=== PATIENT | female | born 1935 | race Caucasian/White ===

== ENCOUNTER 2019-02-20 15:38 | Outpatient (REF) | payer OTHER, SELFPAY ==
[2019-02-20 19:33] LABS: HCT 44.8 % (36.0-46.0); HGB 14.3 g/dL (12.0-15.5); Mean Corp. HGB Concentration 31.9 g/dL (32.0-36.0); Mean Corpuscular Hemoglobin 31.3 pg (27.0-33.0); Mean Platelet Volume 11.2 fL (8.0-11.0); Platelet Count 220 x1000/uL (130-400); RBC 4.57 m/cumm (4.00-5.20); RBC Distribution Width 13.3 % (11.7-14.6); White Blood Cell Count 10.53 k/cumm (4.4-10.8)
[2019-02-20 19:42] LABS: BUN 20 mg/dL (7-18); CREATININE 0.88 mg/dL (0.55-1.02); Calcium 9.6 mg/dL (8.5-10.1); Chloride 103 mmol/L (98-107); Glucose 106 mg/dL (70-100); Potassium 4.5 mmol/L (3.5-5.1); Sodium 141 mmol/L (136-145)
[2019-02-20 19:46] LABS: COMMENT (LAB VIEW ONLY) 87.63 mg/dL; Microalb ug/mg Crea 6.2 ug/mg Cr
== END 2019-02-20 15:58 ==
LOC: NCHCN 15:38
PROVIDERS: PCP Family Medicine; Visit Provider Family Medicine
DX: E11.9 Type 2 diabetes mellitus without complications (principal); I10 Essential (primary) hypertension
CPT/HCPCS: 80048; 85027; 82043; 82570

== ENCOUNTER 2019-04-09 01:40 | Outpatient (CLI) | payer OTHER, SELFPAY ==
--- NOTE | 2019-04-09 16:10 | DI.MAMMO_ITS ---
EXAM: MAMMO SCREENING CLINICAL HISTORY: SCREENING Z12.31. TECHNIQUE: Mammograms were interpreted according to the usual protocol including computer analysis w [employer] CAD system, tomosynthesis and C-view imaging. FINDINGS: The breast tissue is of moderate radiodensity. There is no dominant mass. There are no suspicious ca lcifications and there has been no significant interval change when compared with prior images. IMPRESSION: No evidence of malignancy, category 1, yearly screening mammography is recommended. BI-RADS category B. BI-RADS Cat 1 - Negative. Breast Density - Category B - Scattered areas of fibroglandular density.
--- NOTE | 2019-04-09 16:26 | DI.DEXA_ITS ---
EXAM: XR DEXA BONE DENSITY W/WO JELANI INDICATION: OSTEOPENIA M85.88. TECHNIQUE: 2D digital imaging was performed. FINDINGS: The scanogram is unremarkable. For the left hip, a T-score of -0.6 and a Z-score of +1.6 are consis tent with osteopenia and an increased fracture risk. For the lumbar spine, a T-score of 0.3 and a Z- score of 3.1 are within the normal range. For the left forearm, T-score of -2.8 and Z-score 0.5 indic ate osteopenia and an increased fracture risk. When compared with the previous study 10/23/2012, there has been an interval 1.2 percent increase in mineralization.
== END 2019-04-09 02:00 ==
PROVIDERS: PCP Family Medicine; Visit Provider Family Medicine
DX: Z12.31 Encounter for screening mammogram for malignant neoplasm of breast (principal); M85.88 Other specified disorders of bone density and structure, other site
CPT/HCPCS: 77063; 77067; 77080

== ENCOUNTER 2019-06-04 15:31 | Outpatient (REF) | payer OTHER, SELFPAY ==
[2019-06-04 16:19] LABS: Bilirubin Negative (Negative); Blood Negative (Negative); Clarity Sl Cloudy (Clear); Glucose 100 mg/dL (Negative); Ketones Negative (Negative); Leukocyte Esterase Negative (Negative); Nitrite Positive (Negative); Specific Gravity 1.025 (1.005-1.025); Urobilinogen 0.2 EU/dL (Up TO 0.2)
[2019-06-04 16:29] LABS: Bacteria Many HPF (Negative); C & S Indicated? Yes; Casts Negative LPF (Negative); Crystals Negative HPF (Negative); Epithelial Cells Few HPF (Negative); Mucus Negative (Negative); RBC 0-2 HPF (0-2)
== END 2019-06-04 15:51 ==
LOC: NCHCN 15:31
PROVIDERS: PCP Family Medicine; Visit Provider Family Medicine
DX: R30.0 Dysuria (principal)
CPT/HCPCS: 81003; 81015; 87086; 87186

== ENCOUNTER → 2019-07-18 12:53 | Outpatient (BNVA) | payer OTHER, SELFPAY | PROVIDERS: PCP Family Medicine; Referring Provider Family Medicine; Visit Provider Nurse Practitioner Gerontology | DX: N39.46 Mixed incontinence (principal) | CPT/HCPCS: 99204; 99215 ==

== ENCOUNTER 2019-07-22 08:48 | Outpatient (REF) | payer OTHER, SELFPAY ==
[2019-07-22 10:09] LABS: Bilirubin Negative (Negative); Blood Negative (Negative); Clarity Sl Cloudy (Clear); Glucose Negative (Negative); Ketones Negative (Negative); Leukocyte Esterase Trace (Negative); Nitrite Negative (Negative); Specific Gravity 1.015 (1.005-1.025); Urobilinogen 0.2 EU/dL (Up TO 0.2)
[2019-07-22 10:18] LABS: Bacteria Moderate HPF (Negative); C & S Indicated? No/Sq. Contamination; Casts Negative LPF (Negative); Crystals Negative HPF (Negative); Epithelial Cells Many HPF (Negative); Mucus Negative (Negative); RBC 0-2 HPF (0-2)
== END 2019-07-22 09:08 ==
LOC: LBN 08:48
PROVIDERS: PCP Family Medicine; Visit Provider Nurse Practitioner Gerontology
DX: N39.46 Mixed incontinence (principal)
CPT/HCPCS: 81003; 81015

== ENCOUNTER 2020-01-24 08:52 | Outpatient (REF) | payer OTHER, SELFPAY ==
[2020-01-24 16:24] LABS: HCT 47.4 % (36.0-46.0); HGB 14.9 g/dL (12.0-15.5); Mean Corp. HGB Concentration 31.4 g/dL (32.0-36.0); Mean Corpuscular Hemoglobin 30.9 pg (27.0-33.0); Mean Corpuscular Volume 98.3 fL (80-95); Mean Platelet Volume 11.4 fL (8.0-11.0); Platelet Count 235 x1000/uL (130-400); RBC 4.82 m/cumm (4.00-5.20); RBC Distribution Width 13.4 % (11.7-14.6); White Blood Cell Count 9.59 k/cumm (4.4-10.8)
[2020-01-24 16:37] LABS: ALT 22 U/L (14-59); AST 23 U/L (15-37); Albumin 3.8 g/dL (3.4-5.0); Alkaline Phosphatase 108 U/L (46-116); Anion Gap 5.6 mmol/L (3-11); BUN 17 mg/dL (7-18); Bilirubin, Total 0.7 mg/dL (0.2-1.0); CO2 31.4 mmol/L (21.0-32.0); CREATININE 0.82 mg/dL (0.55-1.02); Calcium 9.1 mg/dL (8.5-10.1); Calculated LDL 127 mg/dL (<100); Chloride 106 mmol/L (98-107); Cholesterol 206 mg/dL (<200); Glucose 151 mg/dL (74-106); HDL Cholesterol 44 mg/dL (40-60); Potassium 4.8 mmol/L (3.5-5.1); Sodium 143 mmol/L (136-145); Total Protein 6.9 g/dL (6.4-8.2); Triglyceride 176 mg/dL (<150)
[2020-01-24 17:22] LABS: Hemoglobin A1C 6.7 % (3.8-5.6)
== END 2020-01-24 09:12 ==
LOC: NCHCN 08:52
PROVIDERS: PCP Family Medicine; Visit Provider Family Medicine
DX: E11.9 Type 2 diabetes mellitus without complications (principal); I25.10 Atherosclerotic heart disease of native coronary artery without angina pectoris; E78.5 Hyperlipidemia, unspecified; I10 Essential (primary) hypertension
CPT/HCPCS: 80053; 80061; 85027; 83036

== ENCOUNTER 2020-01-31 14:14 | Outpatient (REF) | payer OTHER, SELFPAY ==
[2020-01-31 22:10] LABS: COMMENT (LAB VIEW ONLY) 77.57 mg/dL; Microalb ug/mg Crea 4.1 ug/mg Cr
== END 2020-01-31 14:34 ==
LOC: NCHCN 14:14
PROVIDERS: PCP Family Medicine; Visit Provider Family Medicine
DX: E11.9 Type 2 diabetes mellitus without complications (principal)
CPT/HCPCS: 82043; 82570

== ENCOUNTER 2020-02-03 01:20 | Outpatient (CLI) | payer OTHER, SELFPAY ==
--- NOTE | 2020-02-03 | DI.RAD_ITS ---
EXAM: XR LUMBAR SPINE COMPLETE CLINICAL HISTORY: CHRONIC LOW BACK PAIN, M54.5 TECHNIQUE: COMPARISON: CR XR DEXA BONE DENSITY W/WO JELANI from 04/09/2019 CR XR SACROILIAC JOINTS from 02/03/2020 FINDINGS: Five views of lumbosacral spine and 3 additional views of the SI joints were obtained. There is a tr ansitional lumbosacral vertebra. There is disc space narrowing throughout the lumbar region. Promin ent hypertrophic degenerative changes are noted involving the vertebral endplates and facet joints th roughout the lumbar region. There is no evidence of spondylolysis or spondylolisthesis. No compress ion fracture seen. No erosive or destructive lesion seen. Mild right convex lumbar scoliosis noted. Mild marginal spurring of the SI joints noted bilaterally. No evidence of sacroiliitis. IMPRESSION: Degenerative changes involving the lumbosacral spine as described above. No other significant findin gs.
== END 2020-02-03 01:40 ==
PROVIDERS: PCP Family Medicine; Visit Provider Family Medicine
DX: M51.37 Other intervertebral disc degeneration, lumbosacral region (principal); M41.9 Scoliosis, unspecified
CPT/HCPCS: 72110; 72202

== ENCOUNTER 2020-07-30 10:30 | Outpatient (REF) | payer OTHER, SELFPAY ==
[2020-07-30 13:55] LABS: HCT 46.9 % (36.0-46.0); MCH 30.9 pg (27.0-33.0); MCV 96.5 fL (80-95); MPV 11.7 fL (8.0-11.0); Platelet Count 192 10^3/uL (130-400); RBC 4.86 10^6/uL (3.93-5.22); RDW 12.7 % (11.7-14.6); RDW-SD 45.4 fL; WBC 11.28 10^3/uL (4.4-10.8)
[2020-07-30 14:37] LABS: TSH (W/Ref FT4) 3.19 uIU/mL (0.36-3.74); Vitamin B12 703 pg/mL (193-986)
[2020-07-30 14:43] LABS: Folate > 20.0 ng/mL (8.6-20.0)
== END 2020-07-30 10:50 ==
LOC: NCHCN 10:30
PROVIDERS: PCP Family Medicine; Visit Provider Family Medicine
DX: R53.83 Other fatigue (principal); R53.1 Weakness; R20.2 Paresthesia of skin
CPT/HCPCS: 85027; 82607; 82746; 84443

== ENCOUNTER 2020-12-10 01:43 | Outpatient (CLI) | payer OTHER, SELFPAY ==
--- NOTE | 2020-12-10 14:03 | DI.US_ITS ---
APPROVED REPORT EXAM: Comprehensive 2D, Doppler, and color-flow Echocardiogram Patient Location: Out-Patient Cash Analyst: Eri Foster RDCS (AE) Indications: Mitral Regurgitation Other Information Study Quality: Fair Conclusion Left Ventricle : The left ventricle is normal size. The left ventricular systolic function is normal. The left ventricular ejection fraction is within the normal range. Mild concentric left ventricular hypertrophy. There is normal LV segmental wall motion. LVEF is 57%. Right Ventricle : The right ventricle is normal size. The right ventricular systolic function is norm al. Atria : The left atrium size is normal. The right atrium size is normal. Doppler suggests left to rig ht interatrial shunt PFO. Mitral Valve : Moderate mitral annular calcification. Mild mitral regurgitation. No evidence of levon l valve stenosis. Great Vessels : The aortic root is normal in size. The ascending aorta is normal in size. Aortic arch is normal in caliber. IVC is normal in size and collapses >50% with inspiration. Compared to study from 11/14/2017, there is no significant change. Wall motion Left Ventricle The left ventricle is normal size. The left ventricular systolic function is normal. The left ventric ular ejection fraction is within the normal range. Mild concentric left ventricular hypertrophy. Ther e is normal LV segmental wall motion. There is no ventricular septal defect visualized. LVEF is 57%. Right Ventricle The right ventricle is normal size. The right ventricular systolic function is normal. Atria The left atrium size is normal. The right atrium size is normal. Doppler suggests left to right inter atrial shunt PFO. Aortic Valve The aortic valve is normal in structure. Aortic valve is trileaflet. There is no aortic valvular sten osis. No aortic regurgitation is present. Mitral Valve Moderate mitral annular calcification. No evidence of mitral valve stenosis. Mild mitral regurgitatio n. Tricuspid Valve The tricuspid valve is normal in structure. There is no tricuspid valve stenosis. Trace tricuspid reg urgitation. Unable to assess PA pressure. Pulmonic Valve The pulmonary valve is normal in structure. There is no pulmonic valvular stenosis. Trace pulmonic re gurgitation. Great Vessels The aortic root is normal in size. The ascending aorta is normal in size. Aortic arch is normal in ca liber. IVC is normal in size and collapses >50% with inspiration. Pericardium There is no pericardial effusion. 2D Dimensions IVSD d PLAX 1.08 cm F: 0.6-1.0 LV Vol A2C d MOD 87.4 mL LVPW d PLAX 1.08 cm F: 0.6 - 1.0 LV Vol A4C d MOD 76.5 mL LVID d PLAX 4.60 cm F: 3.8 - 5.2 LA vol/ BSA A2C s A-L 23.5 mL/m2 LVDs 3.10 cm F: 2.2 - 3.5 LA vol/ BSA A4C s A-L 28.2 mL/m2 Ao Root d 2.92 cm F: 2.7 - 3.3 LA Vol/ BSA Biplane s A-L 26.1 mL/m2 RA Area A4C 15.07 cm2 LA Area A4C s MOD 18.89 cm2 RA Vol/ BSA A4C s A-L 17.8 mL/m2 LA Area A2C s MOD 17.01 cm2 Ao Asc Diam d 3.16 cm F: 2.3 - 3.1 LV EF A4C MOD 56.1 % LV EF Teichholz 59.9 % LV EF A2C MOD 58.1 % LVEF (Aquino's) 55.79 % F: 54 - 74 LV EF Biplane MOD 55.8 % LV Volume 62.51 mL F: 46 - 106 SV 46.23 mL LV Volume Index 31.89 mL/m2 F: 29 - 61 SV Index 23.52 mL/m2 LV Vol Biplane MOD 82.9 mL FS 31.75 % M-Mode TAPSE 1.91 cm (M/F) >1.7 LV Diastology MV E' medial 0.058 (>0.07 m/s) E/A Ratio 1.3 LV E/e MED 12.30 (<14) MV E Vmax 0.71 (0.4-1.3 m/s) MV E' lateral 0.066 (>0.1 m/s) MV A Vmax 0.55 (0.4-1.3 m/s) LV E/e LAT 10.80 (<14) MV E/A Ratio 1.19 MV E/E' medial 12.34 MV E/E' lateral 10.81 Aortic Valve LVOT Area 3.83 cm2 AoV Area Vmax 3.02 cm2 LVOT Vmax 0.93 m/s AoV Area/ BSA (Vmax) 1.53 cm2/m2 LVOT Mean Fernando. 0.72 m/s MARSHAL Mean Fernando. 3.32 cm2 LVOT Peak Grad 3.5 mmHg MARSHAL Mean Fernando. Index 1.69 cm2/m2 LVOT Mean Grad 2.2 mmHg LVOT VTI 0.240 m LVOT Diam s 2.20 cm AoV Vmax 1.18 m/s Velocity Ratio 0.78 AoV Mean Fernando. 0.83 m/s AoV Peak Grad 5.6 mmHg LVOT SV 92.07 mL AoV Mean Grad 3.1 mmHg AoV VTI 0.259 m AoV Area VTI 3.56 cm2 AoV Area/ BSA (VTI) 1.81 cm/m2 Mitral Valve MV DT 218 (160-240 msec) MV PHT 63 msec MV Area PHT 3.49 cm2 MV VTI 0.318 m MV VTI Annulus 0.315 m MV Area VTI 2.86 (4.0-6.0 cm2) Pulmonary Valve PV Vmax 0.81 (0.5-1.5 m/s) RVOT Peak Gr. 1.10 mmHg PV Peak Grad 2.7 mmHg RVOT Mean Gr. 0.65 mmHg PV Mean Grad 1.5 mmHg RVOT VTI 0.149 m PV VTI 0.183 m RVOT Vmax 0.52 m/s
== END 2020-12-10 02:03 ==
PROVIDERS: PCP Family Medicine; Visit Provider Family Medicine
DX: I34.0 Nonrheumatic mitral (valve) insufficiency (principal)
CPT/HCPCS: 93306

== ENCOUNTER 2021-04-08 11:55 | Outpatient (REF) | payer OTHER, SELFPAY ==
[2021-04-08 15:16] LABS: COMMENT (LAB VIEW ONLY) 96.43 mg/dL; Microalb ug/mg Crea 5.6 ug/mg Cr
== END 2021-04-08 11:56 | disposition home or self-care (01) ==
LOC: NCHCN 11:55
PROVIDERS: PCP Family Medicine; Visit Provider Family Medicine
DX: E11.9 Type 2 diabetes mellitus without complications (principal)
CPT/HCPCS: 82043; 82570

== ENCOUNTER 2021-05-17 02:27 | Outpatient (CLI) | payer MEDICARE, SELFPAY ==
--- NOTE | 2021-05-17 11:30 | DI.MAMMO_ITS ---
Exam(s) MAMMO SCREENING EXAM: MAMMO SCREENING CLINICAL HISTORY: SCREENING FOR BREAST CANCER Z12.31. TECHNIQUE: Bilateral full field digital CC and MLO mammographic images were obtained with 3D tomosyn thesis and utilizing computer aided detection (CAD). COMPARISON: Prior mammograms dating back to 2010, the most recent being April 2019. FINDINGS: There are no CAD designations. No new significant radiograph findings in the right breast. In the left breast on 3D cc imaging there is a noncalcified well-defined lobulated nodule located 3 c m in from the nipple, this measuring 8 by 7 millimeters but unchanged from at least 2013 and therefor e benign. There are no malignant-appearing microcalcification groups in this region or elsewhere in either breast There is no significant architectural distortion nor skin thickening-retraction. IMPRESSION: Stable benign findings. No radiographic evidence of malignancy. BI-RADS Category 2 - Benign Findings Breast Density - Category B - Scattered areas of fibroglandular density Breast density Category C or D implies that the patient has dense breast tissue. Dense breast tissue can make it harder to find cancer on a mammogram. Dense breast tissue is also associated with an incr eased risk of breast cancer. This information about the result of the mammogram report was provided to the patient to raise their awareness. Use this report when you speak with the patient about their risks for breast cancer, which includes their family history. At that time, you may recommend additional screening tests (Ultrasoun d or MRI) as these tests may add significant information. A negative radiographic report should not delay biopsy if a dominant or clinically suspicious mass is present. Up to ten percent of cancers are not identified on mammography. A negative report may reinforce clinical impression. Adenosis and dense breasts may obscure an underlying neoplasm. False positive reports average 6 to 10%. Patient will receive a letter notifying them of these results.
== END 2021-05-17 02:47 ==
PROVIDERS: PCP Family Medicine; Visit Provider Family Medicine
DX: Z12.31 Encounter for screening mammogram for malignant neoplasm of breast (principal); N60.82 Other benign mammary dysplasias of left breast
CPT/HCPCS: 77063; 77067

== ENCOUNTER 2021-07-23 15:18 | Outpatient (REF) | payer MEDICARE, SELFPAY ==
[2021-07-23 15:41] LABS: HCT 45.4 % (36.0-46.0); HGB 14.3 g/dL (11.2-15.7); MCH 30.8 pg (27.0-33.0); MCHC 31.5 % (32.0-36.0); MCV 97.8 fL (80-95); MPV 11.3 fL (8.0-11.0); Platelet Count 228 10^3/uL (130-400); RBC 4.64 10^6/uL (3.93-5.22); RDW 12.8 % (11.7-14.6); RDW-SD 45.9 fL
[2021-07-23 16:04] LABS: Hemoglobin A1C 7.2 % (<5.7)
[2021-07-23 16:10] LABS: Anion Gap 6.5 mmol/L (3-11); BUN 19 mg/dL (7-18); CO2 30.5 mmol/L (21.0-32.0); Calcium 9.1 mg/dL (8.5-10.1); Calculated LDL 124 mg/dL (<100); Chloride 102 mmol/L (98-107); Cholesterol 202 mg/dL (<200); Estimated GFR 52.69 (mL/min/1.73m2); Glucose 166 mg/dL (74-106); HDL Cholesterol 48 mg/dL (40-60); Potassium 5.1 mmol/L (3.5-5.1); Sodium 139 mmol/L (136-145); Triglyceride 150 mg/dL (<150)
== END 2021-07-23 15:19 | disposition home or self-care (01) ==
LOC: NCHCN 15:18
PROVIDERS: PCP Family Medicine; Visit Provider Family Medicine
DX: E11.9 Type 2 diabetes mellitus without complications (principal); I10 Essential (primary) hypertension; I25.10 Atherosclerotic heart disease of native coronary artery without angina pectoris
CPT/HCPCS: 80048; 80061; 85027; 83036

== ENCOUNTER 2022-04-22 14:32 | Outpatient (REF) | payer MEDICARE, SELFPAY ==
[2022-04-22 15:54] LABS: COMMENT (LAB VIEW ONLY) 45.24 mg/dL; Microalb ug/mg Crea 18.1 ug/mg Cr
== END 2022-04-22 14:33 | disposition home or self-care (01) ==
LOC: NCHCN 14:32
PROVIDERS: PCP Family Medicine; Visit Provider Family Medicine
DX: B37.31 Acute candidiasis of vulva and vagina (principal)
CPT/HCPCS: 82043; 82570; 87480; 87510; 87660

== ENCOUNTER 2022-07-29 00:32 | Outpatient (CLI) | payer MEDICARE, SELFPAY ==
--- NOTE | 2022-07-29 09:54 | DI.RAD_ITS ---
Exam(s) XR LUMBAR SPINE COMPLETE EXAM: XR LUMBAR SPINE COMPLETE CLINICAL HISTORY: LOW BACK PAIN X 3 MONTHS, M54.59. TECHNIQUE: 2D digital imaging was performed of the lumbar spine. Seven images were obtained. AP, l ateral, right oblique, left oblique and L5-S1 spot views were obtained. COMPARISON: CR XR LUMBAR SPINE COMPLETE from 02/03/2020 FINDINGS: BONES: No fracture or destructive lesion. Endplate osteophytes are present throughout the lumbar spin e. Multilevel facet arthropathy is present. DISKS: Disc space narrowing is seen throughout the lumbar spine with sparing of the L2-L3 disc level. ALIGNMENT: There is a mild right convex scoliosis. No spondylolysis or spondylolisthesis. SOFT TISSUE: Atherosclerosis is present. 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 DATA REPOSITORY: RADIATION DOSE DELIVERED:
== END 2022-07-29 00:52 ==
LOC: DI 00:32
PROVIDERS: PCP Family Medicine; Visit Provider Family Medicine
DX: M54.59 Other low back pain (principal); M51.37 Other intervertebral disc degeneration, lumbosacral region; M47.817 Spondylosis without myelopathy or radiculopathy, lumbosacral region
CPT/HCPCS: 72110

== ENCOUNTER 2022-08-12 14:56 | Outpatient (REF) | payer MEDICARE, SELFPAY ==
[2022-08-12 16:28] LABS: Anion Gap 8.9 mmol/L (3-11); BUN 19 mg/dL (7-18); CO2 29.1 mmol/L (21.0-32.0); CREATININE 0.9 mg/dL (0.55-1.02); Calcium 9.4 mg/dL (8.5-10.1); Chloride 100 mmol/L (98-107); Estimated GFR 62.26 (mL/min/1.73m2); Glucose 198 mg/dL (74-106); Potassium 5.3 mmol/L (3.5-5.1); Sodium 138 mmol/L (136-145)
[2022-08-12 16:34] LABS: Hemoglobin A1C 7.8 % (<5.7)
== END 2022-08-12 14:57 | disposition home or self-care (01) ==
LOC: NCHCN 14:56
PROVIDERS: PCP Family Medicine; Visit Provider Family Medicine
DX: E11.9 Type 2 diabetes mellitus without complications (principal); I10 Essential (primary) hypertension; Z00.00 Encounter for general adult medical examination without abnormal findings
CPT/HCPCS: 80048; 83036

== ENCOUNTER 2022-10-21 15:16 | Outpatient (REF) | payer MEDICARE, SELFPAY ==
[2022-10-21 18:12] LABS: Anion Gap 5.3 mmol/L (3-11); BUN 21 mg/dL (7-18); CO2 31.7 mmol/L (21.0-32.0); CREATININE 0.9 mg/dL (0.55-1.02); Calcium 9.5 mg/dL (8.5-10.1); Chloride 102 mmol/L (98-107); Estimated GFR 62.26 (mL/min/1.73m2); Glucose 224 mg/dL (74-106); Potassium 5.1 mmol/L (3.5-5.1); Sodium 139 mmol/L (136-145)
== END 2022-10-21 15:17 | disposition home or self-care (01) ==
LOC: NCHCN 15:16
PROVIDERS: PCP Family Medicine; Visit Provider Psychiatry & Neurology Child & Adolescent Psychiatry
DX: E87.5 Hyperkalemia (principal); E11.9 Type 2 diabetes mellitus without complications; I10 Essential (primary) hypertension
CPT/HCPCS: 80048

== ENCOUNTER → 2022-12-29 08:06 | Outpatient (BNVA) | payer MEDICARE, SELFPAY | PROVIDERS: PCP Family Medicine; Referring Provider Family Medicine; Visit Provider Nurse Practitioner Gerontology | DX: N39.41 Urge incontinence (principal) | CPT/HCPCS: 51798; 99203 ==

== ENCOUNTER 2023-01-20 15:19 | Outpatient (REF) | payer MEDICARE, SELFPAY ==
[2023-01-20 15:16] LABS: HCT 41.9 % (36.0-46.0); HGB 13.6 g/dL (11.2-15.7); MCH 31.4 pg (27.0-33.0); MCHC 32.5 % (32.0-36.0); MCV 97 fL (80-95); MPV 10.9 fL (8.0-11.0); Platelet Count 200 10^3/uL (130-400); RBC 4.33 10^6/uL (3.93-5.22); RDW 12.4 % (11.7-14.6); RDW-SD 44.4 fL; WBC 8.99 10^3/uL (4.4-10.8)
[2023-01-20 15:33] LABS: Anion Gap 7.8 mmol/L (3-11); BUN 30 mg/dL (7-18); CO2 31.2 mmol/L (21.0-32.0); CREATININE 0.8 mg/dL (0.55-1.02); Calcium 9.1 mg/dL (8.5-10.1); Chloride 103 mmol/L (98-107); Estimated GFR 71.71 (mL/min/1.73m2); Glucose 167 mg/dL (74-106); Sodium 142 mmol/L (136-145)
== END 2023-01-20 15:20 | disposition home or self-care (01) ==
LOC: NCHCN 15:19
PROVIDERS: PCP Family Medicine; Visit Provider Family Medicine
DX: I10 Essential (primary) hypertension (principal); E87.5 Hyperkalemia; R23.1 Pallor
CPT/HCPCS: 80048; 85027

== ENCOUNTER → 2023-02-01 13:45 | Outpatient (BNVA) | payer MEDICARE, SELFPAY | PROVIDERS: PCP Family Medicine; Referring Provider Family Medicine; Visit Provider Nurse Practitioner Gerontology | DX: R32 Unspecified urinary incontinence (principal) | CPT/HCPCS: 51798; 99213 ==

== ENCOUNTER → 2023-04-12 11:22 | Outpatient (BNVA) | payer MEDICARE, SELFPAY | PROVIDERS: PCP Family Medicine; Visit Provider Nurse Practitioner Gerontology | DX: N39.46 Mixed incontinence (principal); K59.00 Constipation, unspecified; R60.0 Localized edema; R39.89 Other symptoms and signs involving the genitourinary system | CPT/HCPCS: 99213 ==

== ENCOUNTER 2023-04-26 20:30 | Inpatient (IN) | payer MEDICARE, SELFPAY ==
[2023-04-26] VITALS (41 sets, daily range): BP systolic 115–172; BP diastolic 73–143; PULSE 76–141; RESP 16–33; TEMP 36.2–36.8; O2SAT 87–100
--- NOTE | 2023-04-26 20:15 | RT.EKG_ITS ---
APPROVED REPORT Exam: Resting ECG Reason for Exam: short of breath, rapid a-fib Patient Location: E HR:109 bpm ECG Measurements Heart Rate 109 AXIS VA [id number] P [id number] QRSd 98 QRS -4 QT 312 T 148 QTc 421 Conclusion Atrial fibrillation...V-rate 88-134, irreg A-activity Repol abnrm suggests ischemia, anterolateral...ST dep, T neg, I aVL V2-V6 No ST segment or T wave abnormalities to suggest occlusive MD
--- NOTE | 2023-04-26 20:30 | DI.CT_ITS ---
Exam(s) CT CHEST PE CTA EXAM: CT CHEST PE CTA CLINICAL HISTORY: short of breath hypoxia. TECHNIQUE: Imaging Protocol: Axial CT angiography was performed with multi-slice acquisition and mu lti-planar reconstructions as well as axial, coronal and sagittal MIP reconstructions. CONTRAST MATERIAL: Intravenous: Omnipaque 350 Contrast volume:100 ml COMPARISON: CR CHEST 2 VIEWS PA,LAT from 12/19/2013 FINDINGS: Pulmonary Arteries: No evidence of filling defect to suggest pulmonary emboli. Pulmonary artery pro minence. Tracheobronchial tree: Patent where visualized. Mediastinum and Eva: No dominant adenopathy or fluid collection. Pulmonary parenchyma: Increased interlobular septal thickening greater at the lung bases, consistent with pulmonary edema. No consolidation or dominant measurable mass. Pleura: Small bilateral pleural effusions. No pneumothorax. Heart: The heart is dilated. coronary artery calcifications are seen. No pericardial effusion. Aorta: Thoracic aorta non-dilated. No aneurysm. No dissection. Upper abdomen: Unremarkable. Bones: Unremarkable for age. Tubes, Catheters, and Lines: None IMPRESSION: No evidence of pulmonary embolism. Small bilateral pleural effusions, cardiomegaly and mild to moderate CHF. RADIATION DOSE DELIVERED: Total DLP DATA REPOSITORY: All CT scans at this facility are submitted to the National Radiology Data Registry (NRDR) Dose Index Registry (DIR) with the [employer] ([employer]). RADIATION OPTIMIZATION: All CT scans at this facility use at least one of these dose optimization te chniques: automated exposure control; mA and/or kV adjustment per patient size (includes targeted exa ms where dose is matched to clinical indication); or iterative reconstruction.
--- NOTE | 2023-04-26 20:30 | RT.EKG_ITS ---
APPROVED REPORT Exam: Resting ECG Reason for Exam: a-fib, wants r sided ekg Patient Location: E HR:121 bpm ECG Measurements Heart Rate 121 AXIS CA [id number] P [id number] QRSd 99 QRS -10 QT 332 T 150 QTc 471 Conclusion Atrial fibrillation...V-rate 74-156, irreg A-activity Anterolateral infarct, age indeterminate...Q >35mS, flat/neg T, V3-V6,I,aVL No ST segment or T wave abnormalities to suggest occlusive [place]
[2023-04-26 20:54] LABS: Abs Immature Grans 0.08 10^3/uL (0.0-0.06); Absolute Basophil Count 0.06 10^3/uL (0.0-0.2); Absolute Eosinophil Count 0.02 10^3/uL (0.0-0.7); Absolute Monocyte Count 1.21 10^3/uL (0.1-0.8); Absolute Neutrophil Count 15.85 10^3/uL (1.2-6.7); Basophils % 0.3; Eosinophils % 0.1; HCT 45.6 % (36.0-46.0); HGB 14.6 g/dL (11.2-15.7); Immature Grans % 0.4; Lymphocytes % 7.5; MCH 30.5 pg (27.0-33.0); MCV 95 fL (80-95); MPV 10.9 fL (8.0-11.0); Monocytes % 6.5; Neutrophils % 85.2; Platelet Count 235 10^3/uL (130-400); RBC 4.79 10^6/uL (3.93-5.22); RDW 12.6 % (11.7-14.6); RDW-SD 44.5 fL
[2023-04-26 21:08] LABS: INR 1.1 (0.9-1.1); PTT Activated 24.2 sec (23.6-32.8)
--- NOTE | 2023-04-26 21:18 | ED.GENADUL_ITS ---
Discharge Plan Disposition Patient Disposition: Admit to [facility] Discharge Details Chief Complaint: SOB Clinical Impression: Respiratory failure Primary Care Provider: Ruth Ho ED Provider: Preeti Jeffery Home Meds and New Rx's Prescriptions: No Action naproxen sodium [Aleve] 220 mg tablet 220 mg PO BID PRN desonide 0.05 % Cream 1 applic TOPICAL BID amlodipine 2.5 mg Tablet 2.5 mg PO DAILY (DME) OneTouch Ultra Blue Test Strip Strip MISCELLANEOUS (DME) lancets [OneTouch UltraSoft Lancets] Misc MISCELLANEOUS (DME) blood-glucose meter [eGisticsTouch UltraMini] Kit MISCELLANEOUS clobetasol 0.05 % Solution 1 applic TOPICAL BID (DME) pen needle, diabetic [TRUEplus Pen Needle] 31 gauge x 3/16 Needle MISCELLANEOUS latanoprost [Xalatan] 2.5 ML drops 1 drp Ophthalmic DAILY atorvastatin 40 MG tablet 40 mg PO DAILY Patient Comments: pt states dose is 20mg -MG 04/26/23 aspirin [Aspir-81] 81 MG tablet,delayed release (DR/EC) 81 mg PO DAILY nitroglycerin [Nitrostat] 0.4 MG tablet, sublingual 0.4 mg Sublingual ONCE brimonidine 15 ML drops 1 drp Ophthalmic BID metformin 500 MG tablet extended release 24hr 1,000 mg PO DAILY Levemir FlexTouch U100 Insulin 100 UNIT/1 ML insulin pen 60 u Sub-Q DAILY dorzolamide-timolol (PF) [Cosopt (PF)] 1 EACH dropperette 1 drp Ophthalmic BID multivitamin Tablet 1 tab PO DAILY mometasone 0.1 % solution 1 applic topical DAILY Nizoral A-D 1 % shampoo 1 applic topical Q3D clotrimazole 1 % cream 1 applic topical DAILY Rocklatan 0.02-0.005 % drops 1 drp ophthalmic (eye) DAILY lisinopril 40 mg tablet 20 mg PO DAILY Medical Decision Making 88yo F with hx HTN, DM, CAD presenting via EMS for shortness of breath. History from patient, EMS, and grandson at bedside. Has had 7 days of general malaise, mild cough, and increasing shortness of breath, worse today. On EMS arrival had O2 sat in the low 90's (improved to 97% on 4LNC) found to be in afib with RVR rate in the 160's. She was given 20mg of IV diltazem with improvement in HR to 90's. No chest pain at any point. Vital signs reassuring on arrival, mildly hypertensive, HR 90's-110's. EKG afib, some ST depressions anterolateral leads, on sequela of occlusive [place]. Labs reviewed as below, CBC with leukocytosis, CMP with no actionable abnormalities, coags normal, troponin markedly elevated at 2790 (suspect rate-related), BNP also elevated at 8890. Patient denies any history of heart failure or prior MIs. [facility] record review shows does have cardiac stents in place. On reassessment patient again with RVR; given additional 10mg of IV diltazem followed by dilt gtt, HR improved to 90's. COVID + CTA for PE independently reviewed, no saddle embolus on my view, agree with radiology read below. Will diuresis with IV lasix and attempt to wean O2, trend troponin. Discussed with cardiology [facility] [place] Justice, would hold off on heparin for now pending repeat troponin. He would like a call with an update after the delta troponin, might consider heparin if significantly uptrending. Discussed with hospitalist converter operator Dr. Quiroga; patient accepted to medicine service and awaiting transfer to the floor. Imaging Data Radiologic Study: Imaging: X-Ray Radiologist's impression: IMPRESSION: 1. No evidence of pulmonary embolus. 2. Mild pulmonary vascular congestion and mild findings of interstitial pulmonary edema as well as small pleural effusions. Lab Data Lab results reviewed: Yes I reviewed the patient's lab results. Labs: Laboratory Tests Range/Units 04/26/23 04/26/23 20:36 23:10 WBC (4.4-10.8) 10^3/uL 18.60 H RBC (3.93-5.22) 10^6/uL 4.79 Hgb (11.2-15.7) g/dL 14.6 Hct (36.0-46.0) % 45.6 MCV (80-95) fL 95 MCH (27.0-33.0) pg 30.5 MCHC (32.0-36.0) % 32.0 RDW (11.7-14.6) % 12.6 Plt Count (130-400) 10^3/uL 235 MPV (8.0-11.0) fL 10.9 Immature Gran % 0.4 Neutrophils % 85.2 Lymphocytes % 7.5 Monocytes % 6.5 Eosinophils % 0.1 Basophils % 0.3 Nucleated RBC % (0.0-0.3) % 0.0 Absolute Neutrophils (1.2-6.7) 10^3/uL 15.85 H Absolute Lymphocytes (1.2-3.4) 10^3/uL 1.40 Absolute Monocytes (0.1-0.8) 10^3/uL 1.21 H Absolute Eosinophils (0.0-0.7) 10^3/uL 0.02 Absolute Basophils (0.0-0.2) 10^3/uL 0.06 PT (9.1-11.1) sec 11.0 INR (0.9-1.1) 1.1 APTT (23.6-32.8) sec 24.2 Sodium (136-145) mmol/L 134 L Potassium (3.5-5.1) mmol/L 4.2 Chloride (98-107) mmol/L 99 Carbon Dioxide (21.0-32.0) mmol/L 24.0 Anion Gap (3-11) mmol/L 11.0 BUN (7-18) mg/dL 20 H Creatinine (0.55-1.02) mg/dL 0.9 Est GFR (CKD-EPI 2020) (mL/min/1.73m2) 61.87 Glucose (74-106) mg/dL 280 H Calcium (8.5-10.1) mg/dL 9.3 Magnesium (1.8-2.4) mg/dL 1.7 L Total Bilirubin (0.2-1.0) mg/dL 1.1 H AST (15-37) U/L 36 ALT (14-59) U/L 30 Alkaline Phosphatase (46-116) U/L 106 Troponin I (<or=60) ng/L 2790 H* NT-Pro-B Natriuret Pep (<300) pg/mL 8890 H Total Protein (6.4-8.2) g/dL 7.1 Albumin (3.4-5.0) g/dL 3.5 Urine Color (Yellow) Yellow Urine Clarity (Clear) Sl Cloudy Urine pH (5-8) 6.0 Ur Specific [place] (1.005-1.025) 1.020 Urine Protein (Negative) mg/dL Negative Urine Ketones (Negative) mg/dL 15 H Urine Blood (Negative) Trace-intact H Urine Nitrite (Negative) Negative Urine Bilirubin (Negative) Negative Urine Urobilinogen (Up to 0.2) mg/dL 0.2 Ur Leukocyte Esterase (Negative) Trace H Urine RBC (0-2) HPF 0-2 Urine WBC (0-5) HPF 10-20 H Ur Epithelial Cells (Negative) HPF Many Urine Crystals (Negative) HPF Negative Urine Bacteria (Negative) HPF Many Urine Mucus (Negative) Negative Ur Culture Indicated? No/Sq. Contamination Urine Glucose (Negative) mg/dL 500 H COVID-19 Source Nasopharynx SARS-CoV-2 (PCR) (Negative) Positive A Influenza Type A (PCR) (Negative) Negative Influenza Type B (PCR) (Negative) Negative RSV (PCR) (Negative) Negative HPI General Mode of arrival: EMS . Date/Time Provider Initiated Documentation: 04/26/23 20:42 . Limitations to Documentation: no limitations . Information obtained by: patient, family and EMS . HPI Narrative: 88yo F with hx HTN, DM, CAD presenting via EMS for shortness of breath. History from patient, EMS, and grandson at bedside. Has had 7 days of general malaise, mild cough, and increasing shortness of breath. Today began to feel worse and felt hot; on EMS arrival had sat in the low 90's (improved to 97% on 4LNC) found to be in afib with RVR rate in the 160's. She was given 20mg of IV diltazem with improvement in HR to 90's. Patient reports symptoms have improved and feels okay now. No chest pain at any point. No new LE edema. She is otherwise in her usual state of health with no fevers, chills, rash, nausea, vomiting, diarrhea, other concerns. Related Data Home Medications Medication Instructions Recorded Confirmed aspirin 81 mg tablet,delayed 81 mg PO DAILY 03/15/17 04/26/23 release (Aspir-) atorvastatin 40 mg tablet 40 mg PO DAILY 03/15/17 04/26/23 brimonidine 0.15 % eye drops 1 drp ophthalmic (eye) BID 03/15/17 04/26/23 dorzolamide-timolol (PF) 2 %-0.5 % 1 drp ophthalmic (eye) BID 03/15/17 04/26/23 eye drops in a dropperette (Cosopt (PF)) insulin detemir U-100 100 unit/mL 60 u subcut DAILY 03/15/17 04/26/23 (3 mL) subcutaneous pen (Levemir FlexTouch U-100 Insulin) latanoprost 0.005 % eye drops 1 drp ophthalmic (eye) DAILY 03/15/17 02/24/20 (Xalatan) metformin 500 mg tablet,extended 1,000 mg PO DAILY 03/15/17 04/26/23 release 24hr nitroglycerin 0.4 mg sublingual 0.4 mg sublingual ONCE 03/15/17 04/26/23 tablet (Nitrostat) amlodipine 2.5 mg tablet 2.5 mg PO DAILY 02/13/20 04/26/23 blood sugar diagnostic (OneTouch 02/13/20 04/26/23 Ultra Blue Test Strip) blood-glucose meter (eGisticsTouch 02/13/20 04/26/23 UltraMini kit) clobetasol 0.05 % scalp solution 1 applic topical BID 02/13/20 02/13/20 desonide 0.05 % topical cream 1 applic topical BID 02/13/20 04/26/23 lancets (eGisticsTouch UltraSoft 02/13/20 04/26/23 Lancets) pen needle, diabetic 31 gauge x 02/13/20 04/26/23 3/16 (TRUEplus Pen Needle) clotrimazole 1 % topical cream 1 applic topical DAILY 08/22/22 04/26/23 ketoconazole 1 % shampoo (Nizoral 1 applic topical Q3D 08/22/22 04/26/23 A-D) lisinopril 40 mg tablet 20 mg PO DAILY 08/22/22 04/26/23 mometasone 0.1 % topical solution 1 applic topical DAILY 08/22/22 04/26/23 multivitamin 1 tab PO DAILY 08/22/22 04/26/23 netarsudil 0.02 %-latanoprost 1 drp ophthalmic (eye) DAILY 08/22/22 0.005 % eye drops (Rocklatan) naproxen sodium 220 mg tablet 220 mg PO BID PRN 04/12/23 04/12/23 (Aleve) Allergies Allergy/AdvReac Type Severity Reaction Status Date / Time No Known Allergies Allergy Unverified 04/26/23 20:38 General Stated Complaint: SOB MARIA ANTONIA: 3 Review of Systems Narrative: see HPI PFSH All Active Problems (Updated 04/27/23 @ 00:19 by Preeti Jeffery MD) Respiratory failure (Acute) Acute COVID-19 (Acute) NSTEMI (non-ST elevated myocardial infarction) (Acute) CHF (congestive heart failure) (Chronic) Atrial fibrillation with rapid ventricular response (Acute) Colonic polyp (Acute) Hip pain, left (Acute) Risk for falls (Acute) Weakness (Acute) Tiredness (Acute) Paresthesia (Acute) Constipation (Acute) Actinic keratosis (Acute) Low back pain (Acute) Sciatica (Acute) Urinary incontinence (Acute) Medical History (Updated 04/27/23 @ 00:19 by Preeti Jeffery MD) Screening mammogram, encounter for Preventative health care Urinary incontinence, mixed Chronic low back pain Hyperplastic colonic polyp Basal cell carcinoma Glaucoma Psoriasis Obesity Pain of left hip joint Overactive bladder Osteopenia Depression Memory impairment Mitral regurgitation HTN (hypertension) HLD (hyperlipidemia) CAD (coronary artery disease) Diabetes mellitus Dysuria Social History Smoking/Tobacco Use Status: Never Smoking risk assessment performed?: Yes Alcohol Intake: never Drug use: Never Substance use type: does not use Household members: children Housing: house Number of Children: 3 current occupation: Retired What type of physical activity do you participate in: independent ambulation Do you feel safe at home: Yes Do you feel safe in your relationship?: Yes Exam Narrative Exam Narrative: General: Alert, well appearing, well nourished, in no acute distress. Head: Normocephalic, atraumatic Neck: Trachea midline, Neck supple. ENT: MMM. Cardiac: RRR, no murmurs appreciated Resp: No respiratory distress. CTAB. Abd: Soft, non-distended, nontender : No suprapubic tenderness. Extremities: No deformities. 1+ pitting edema bilateral LE. Neurologic: GCS 15. Moves all extremities freely against gravity Course Vital Signs Vital signs: Vital Signs Temperature 36.2 C L 04/26/23 20:31 Pulse 117 H 04/26/23 20:31 Respiratory Rate 24 04/26/23 20:31 Blood Pressure 158/128 H 04/26/23 20:31 Pulse Oximetry 97 04/26/23 20:31 Temperature 36.8 C 04/26/23 20:56 Temperature Source Temporal Artery Scan 04/26/23 20:56 Pulse 133 H 04/26/23 20:56 Respiratory Rate 25 H 04/26/23 20:56 Respiratory Effort Short of Breath 04/26/23 20:56 Respiratory Depth Normal 04/26/23 20:56 Respiratory Pattern Normal 04/26/23 20:56 Blood Pressure 162/89 H 04/26/23 20:56 Blood Pressure Position Sitting 04/26/23 20:56 Pulse Oximetry 97 04/26/23 20:56 Oxygen Delivery Method Nasal Cannula 04/26/23 20:56 Oxygen Flow Rate 4 04/26/23 20:56 Pain Level 5 04/26/23 20:56 Lab/Test Results Lab/Test Results: Laboratory Tests Range/Units 04/26/23 20:36 WBC (4.4-10.8) 10^3/uL 18.60 H RBC (3.93-5.22) 10^6/uL 4.79 Hgb (11.2-15.7) g/dL 14.6 Hct (36.0-46.0) % 45.6 MCV (80-95) fL 95 MCH (27.0-33.0) pg 30.5 MCHC (32.0-36.0) % 32.0 RDW (11.7-14.6) % 12.6 Plt Count (130-400) 10^3/uL 235 MPV (8.0-11.0) fL 10.9 Immature Gran % 0.4 Neutrophils % 85.2 Lymphocytes % 7.5 Monocytes % 6.5 Eosinophils % 0.1 Basophils % 0.3 Nucleated RBC % (0.0-0.3) % 0.0 Absolute Neutrophils (1.2-6.7) 10^3/uL 15.85 H Absolute Lymphocytes (1.2-3.4) 10^3/uL 1.40 Absolute Monocytes (0.1-0.8) 10^3/uL 1.21 H Absolute Eosinophils (0.0-0.7) 10^3/uL 0.02 Absolute Basophils (0.0-0.2) 10^3/uL 0.06 PT (9.1-11.1) sec 11.0 INR (0.9-1.1) 1.1 APTT (23.6-32.8) sec 24.2 Critical Care Time Critical Care Time Critical Care Time: Yes Total Critical Care Time: 31 Attestation: Due to a high probability of clinically significant, life threatening deterioration, the patient required my highest level of preparedness to intervene emergently and I personally spent this critical care time directly and personally managing the patient. This critical care time included obtaining a history; examining the patient; pulse oximetry; ordering and review of studies; arranging urgent treatment with development of a management plan; evaluation of patient's response to treatment; frequent reassessment; and, discussions with other providers. This critical care time was performed to assess and manage the high probability of imminent, life-threatening deterioration that could result in multi-organ failure. It was exclusive of separately billable procedures.
[2023-04-26] MEDS: dilTIAZem 25 MG/5 ML VIAL 10 MG IVP (21:21)
[2023-04-26] MEDS: dilTIAZem 125 MG in Normal Saline 100 ML IV (21:26)
[2023-04-26 21:33] LABS: ALT 30 U/L (14-59); AST 36 U/L (15-37); Albumin 3.5 g/dL (3.4-5.0); Alkaline Phosphatase 106 U/L (46-116); BUN 20 mg/dL (7-18); Bilirubin, Total 1.1 mg/dL (0.2-1.0); CREATININE 0.9 mg/dL (0.55-1.02); Calcium 9.3 mg/dL (8.5-10.1); Chloride 99 mmol/L (98-107); Estimated GFR 61.87 (mL/min/1.73m2); Glucose 280 mg/dL (74-106); Magnesium 1.7 mg/dL (1.8-2.4); NT-proBNP 8890 pg/mL (<300); Potassium 4.2 mmol/L (3.5-5.1); Sodium 134 mmol/L (136-145); Total Protein 7.1 g/dL (6.4-8.2)
[2023-04-26 21:38] LABS: Influenza A PCR Negative (Negative); Influenza B PCR Negative (Negative); RSV PCR Negative (Negative)
[2023-04-26 21:41] LABS: COVID-19 PCR Positive (Negative); Source Nasopharynx
[2023-04-26] MEDS: Normal Saline - Diluent 50 ML VIAL IJ (22:11)
[2023-04-26] MEDS: Omnipaque 350 MG/ML 100 ML BTL IJ (22:11)
[2023-04-26] MEDS: Normal Saline Flush 10 ML SYR IVP (22:12)
[2023-04-26 22:23] LABS: Troponin I 2790 ng/L (<or=60)
--- NOTE | 2023-04-26 22:35 | DI.VRAD_ITS ---
PROCEDURE INFORMATION: Exam: CTA Chest With Contrast Exam date and time: 04/26/2023 10:05 PM Age: 88 years old Clinical indication: Shortness of breath and other: Hypoxia TECHNIQUE: Imaging protocol: Computed tomographic angiography of the chest with contrast. Exam focused on the arteries. 3D rendering (Not supervised by radiologist): MIP and/or 3D reconstructed images were created by the technologist. Contrast material: OMNI 350; Contrast volume: 100 ml; Contrast route: INTRAVENOUS (IV); COMPARISON: No relevant prior studies available. FINDINGS: Pulmonary arteries: Mild diffuse pulmonary vascular prominence. No evidence of pulmonary embolus. Aorta: Moderate atherosclerotic calcification throughout the aorta. No evidence of aneurysm. Lungs: Moderate interlobular septal thickening in the lower lungs compatible with interstitial edema. Pleural spaces: Small bilateral pleural effusions. No pneumothorax. Heart: Unremarkable. No cardiomegaly. No pericardial effusion. Lymph nodes: Unremarkable. No enlarged lymph nodes. Bones/joints: Moderate degenerative disc changes throughout the thoracic spine. No vertebral body compression or acute fracture. Soft tissues: Unremarkable. IMPRESSION: 1. No evidence of pulmonary embolus. 2. Mild pulmonary vascular congestion and mild findings of interstitial pulmonary edema as well as small pleural effusions. Dictated and Authenticated by: Loi Diaz MD. Ordering:JUSTIN Álvarez MD
--- NOTE | 2023-04-26 22:47 | NUR.NOTE ---
PT attempted to give urine sample but was unable to Nursing Note:
[2023-04-26 23:16] LABS: Bilirubin Negative (Negative); Blood Trace-intact (Negative); Clarity Sl Cloudy (Clear); Glucose 500 mg/dL (Negative); Ketones 15 mg/dL (Negative); Leukocyte Esterase Trace (Negative); Nitrite Negative (Negative); Urobilinogen 0.2 mg/dL (Up to 0.2)
[2023-04-26 23:24] LABS: Bacteria Many HPF (Negative); C & S Indicated? No/Sq. Contamination; Crystals Negative HPF (Negative); Epithelial Cells Many HPF (Negative); Mucus Negative (Negative); RBC 0-2 HPF (0-2)
[2023-04-26] MEDS: Furosemide 40 MG/4 ML VIAL IVP (23:27)
--- NOTE | 2023-04-26 23:33 | HPE_ITS ---
Date of service: 04/26/23 Time of Service: 23:33 Assessment and Plan Assessment and plan (1) Atrial fibrillation with rapid ventricular response: Start date: 04/26/23 Status: Acute Assessment and plan: This is an 88-year-old lady with new onset atrial fibrillation with rapid response responded to diltiazem but had an elevated troponin which continued to elevate though she was asymptomatic. She did respond to IV Lasix, this will be continued. She has a mild CHF. Diltiazem drip was discontinued because of her increasing troponins and she was initiated on heparin infusion and will be given metoprolol orally for heart rate control. Echocardiogram was ordered for the morning. Patient is a full code. (2) NSTEMI (non-ST elevated myocardial infarction): Start date: 04/26/23 Status: Acute Assessment and plan: Elevated troponins with slight increase on second measurement. Continue IV heparin infusion and loaded with Plavix and aspirin with Plavix to be continued daily as a 5 mg and aspirin 81 mg daily. She has had previous cardiac catheterization x2 but none recently and no symptoms recently. Atrial fibrillation is new onset and this may be stress and heart with demand ischemia. COVID also may be complicating her course. Consider transfer for cardiac catheterization especially if troponins continue to rise or if there is difficulty controlling atrial fibrillation with rapid ventricular response. As stated, she is a full code. (3) Hypomagnesemia: Start date: 04/26/23 Status: Acute Assessment and plan: IV repletion and trend labs. (4) CHF (congestive heart failure): Start date: 04/26/23 Status: Chronic Assessment and plan: Patient has been pleural effusions and elevated BNP. Lasix was given and plan to continue IV Lasix twice daily for diuresis. Trend labs. (5) Acute COVID-19: Start date: 04/26/23 Status: Acute Assessment and plan: This may be stress and patient with her cardiac status and may even have prompted her dysrhythmia. Patient was hypoxic in the ED and will be continued on O2 supplementation with remdesivir and dexamethasone initiated. She does not appear to have pneumonia at this time. Monitor closely. CTA was negative for any PE which is associated with COVID-19 infection. (6) Psoriasis: Assessment and plan: Continue outpatient medical therapy. (7) CAD (coronary artery disease): Assessment and plan: Status post cardiac catheterization and stenting in 1997 and 2007. No recent intervention but patient is open to repeat cardiac catheterization if indicated. (8) Diabetes mellitus: Assessment and plan: Hold metformin and glucometer measurements before meals and bedtime with short acting insulin coverage. This may be exacerbated by dexamethasone and patient may need basal insulin during her hospital stay. History of Present Illness History of Present Illness Chief Complaint: Increasing shortness of breath N arrative: This is an 88-year-old female patient who has not had a COVID vaccines presenting to the ED with increasing dyspnea but also has been having increased stooling for the last 2 to 3 days. She lives with her son who is present at the interview and augmented her history. She been feeling ill for about 1 week with fatigue and some slight shortness of breath with worsened as well as chills. She had no measured fever. Her prompted her to report to the ED with increasing shortness of breath. In the ED she was found to be hypoxic which is off her baseline and then new onset atrial fibrillation with rapid ventricular response. Patient does have a history of CAD status post stenting in 1997 and 2007. She has had reasonable sublingual use in her problems but has not used this in the recent past. She denies any chest pain with her symptoms. She has had no cough. Because of her tachycardia she was placed on IV diltiazem with good rate control and she also was given oxygen supplementation. She was found to be positive for COVID and will be treated for acute COVID infection as well. Her troponin level was elevated upon admission above 2000 and increased to just above 3000 with a delta troponin. This evening cardiology recommended heparinization and loading of Plavix and aspirin. She chronically was on the baby aspirin. At the time I examined the patient she was fatigued but able to answer questions despite slight dyspnea at rest. I did review her CODE STATUS and she does remain a full code. She is living independently with her son. Review of Systems Narrative: 13 point review of systems otherwise unrevealing or stable. FOR[facility]LY [facility] All Active Problems (Updated 04/27/23 @ 02:03 by Baldemar Quiroga) Hypomagnesemia (Acute) Respiratory failure (Acute) Acute COVID-19 (Acute) NSTEMI (non-ST elevated myocardial infarction) (Acute) CHF (congestive heart failure) (Chronic) Atrial fibrillation with rapid ventricular response (Acute) Colonic polyp (Acute) Hip pain, left (Acute) Risk for falls (Acute) Weakness (Acute) Tiredness (Acute) Paresthesia (Acute) Constipation (Acute) Actinic keratosis (Acute) Low back pain (Acute) Sciatica (Acute) Urinary incontinence (Acute) Medical History (Updated 04/27/23 @ 02:03 by Baldemar Quiroga) Screening mammogram, encounter for Preventative health care Urinary incontinence, mixed Chronic low back pain Hyperplastic colonic polyp Basal cell carcinoma Glaucoma Psoriasis Obesity Pain of left hip joint Overactive bladder Osteopenia Depression Memory impairment Mitral regurgitation HTN (hypertension) HLD (hyperlipidemia) CAD (coronary artery disease) Diabetes mellitus Dysuria Social History Smoking/Tobacco Use Status: Never Smoking risk assessment performed?: Yes Alcohol Intake: never Drug use: Never Substance use type: does not use Household members: children Housing: house Number of Children: 3 current occupation: Retired What type of physical activity do you participate in: independent ambulation Do you feel safe at home: Yes Do you feel safe in your relationship?: Yes Meds Allergies and Home Medications Allergies Allergy/AdvReac Type Severity Reaction Status Date / Time No Known Allergies Allergy Unverified 04/26/23 20:38 Home Medications Medication Instructions Recorded Confirmed Type aspirin 81 mg tablet,delayed 81 mg PO DAILY 03/15/17 04/26/23 History release (Aspir-) atorvastatin 40 mg tablet 40 mg PO DAILY 03/15/17 04/26/23 History brimonidine 0.15 % eye drops 1 drp ophthalmic (eye) BID 03/15/17 04/26/23 History dorzolamide-timolol (PF) 2 %-0.5 % 1 drp ophthalmic (eye) BID 03/15/17 04/26/23 History eye drops in a dropperette (Cosopt (PF)) insulin detemir U-100 100 unit/mL 60 u subcut DAILY 03/15/17 04/26/23 History (3 mL) subcutaneous pen (Levemir FlexTouch U-100 Insulin) latanoprost 0.005 % eye drops 1 drp ophthalmic (eye) DAILY 03/15/17 02/24/20 History (Xalatan) metformin 500 mg tablet,extended 1,000 mg PO DAILY 03/15/17 04/26/23 History release 24hr nitroglycerin 0.4 mg sublingual 0.4 mg sublingual ONCE 03/15/17 04/26/23 History tablet (Nitrostat) amlodipine 2.5 mg tablet 2.5 mg PO DAILY 02/13/20 04/26/23 History blood [facility] diagnostic ([facility] 02/13/20 04/26/23 History Ultra Blue Test Strip) blood-glucose meter ([facility] 02/13/20 04/26/23 History UltraMini kit) clobetasol 0.05 % scalp solution 1 applic topical BID 02/13/20 02/13/20 History desonide 0.05 % topical cream 1 applic topical BID 02/13/20 04/26/23 History lancets ([facility] UltraSoft 02/13/20 04/26/23 History Lancets) pen needle, diabetic 31 gauge x 02/13/20 04/26/23 History 3/16 (TRUEplus Pen Needle) clotrimazole 1 % topical cream 1 applic topical DAILY 08/22/22 04/26/23 History ketoconazole 1 % shampoo (Nizoral 1 applic topical Q3D 08/22/22 04/26/23 History A-D) lisinopril 40 mg tablet 20 mg PO DAILY 08/22/22 04/26/23 History mometasone 0.1 % topical solution 1 applic topical DAILY 08/22/22 04/26/23 History multivitamin 1 tab PO DAILY 08/22/22 04/26/23 History netarsudil 0.02 %-latanoprost 1 drp ophthalmic (eye) DAILY 08/22/22 History 0.005 % eye drops ([place]) naproxen sodium 220 mg tablet 220 mg PO BID PRN 04/12/23 04/12/23 History (Aleve) Exam Narrative Exam Narrative: General: Patient appears fatigued but appropriate for age and moderately obese. She is lying in bed with her head at a 45 degree angle slightly dyspneic but able to speak clearly without hesitation. She is in no acute distress. She is alert and oriented x3. HEENT: Normocephalic, eyes with pupils equal manage light symmetric, extraocular movement tachycardia sclera anicteric. Oropharynx with dry mucosa. Neck: Supple without JVD. Back: Slightly kyphotic without CVA tenderness. Lungs: Decreased aeration of both bases otherwise clear to auscultation with no focalizing rales or rhonchi. No expiratory wheeze. Heart: Irregularly irregular rhythm with tachycardia just above 100. No appreciable murmur. No gallop. Breast: Exam deferred. Abdomen: Obese contour, soft and nontender to palpation with no palpable hepatosplenomegaly. Bowel sounds positive all quadrants. Genitalia/rectal: Exam deferred. Extremities: No pitting edema, cyanosis or clubbing. Fair capillary refill. Ultrasound fair range of motion with some bony osteophytic changes. Skin: Normal color, warm and dry. Neuro: Cranial nerves II through XII gross intact, no focalizing motor deficits and no tremor. Psych: Flattened affect with fair eye contact. Patient is anxious with normal mood. Slow monotonous tone to voice. No abnormal thought processes. Remote and recent memory grossly intact. Results Imaging Imaging Studies: Exam: CTA Chest With Contrast Exam date and time: 04/26/2023 10:05 PM Age: 88 years old Clinical indication: Shortness of breath and other: Hypoxia TECHNIQUE: Imaging protocol: Computed tomographic angiography of the chest with contrast. Exam focused on the arteries. 3D rendering (Not supervised by radiologist): MIP and/or 3D reconstructed images were created by the technologist. Contrast material: OMNI 350; Contrast volume: 100 ml; Contrast route: INTRAVENOUS (IV); COMPARISON: No relevant prior studies available. FINDINGS: Pulmonary arteries: Mild diffuse pulmonary vascular prominence. No evidence of pulmonary embolus. Aorta: Moderate atherosclerotic calcification throughout the aorta. No evidence of aneurysm. Lungs: Moderate interlobular septal thickening in the lower lungs compatible with interstitial edema. Pleural spaces: Small bilateral pleural effusions. No pneumothorax. Heart: Unremarkable. No cardiomegaly. No pericardial effusion. Lymph nodes: Unremarkable. No enlarged lymph nodes. Bones/joints: Moderate degenerative disc changes throughout the thoracic spine. No vertebral body compression or acute fracture. Soft tissues: Unremarkable. IMPRESSION: 1. No evidence of pulmonary embolus. 2. Mild pulmonary vascular congestion and mild findings of interstitial pulmonary edema as well as small pleural effusions. Labs 04/26/23 20:36 04/26/23 20:36 Labs: Laboratory Results - last 24 hr 04/26/23 04/26/23 20:36 23:10 WBC 18.60 H RBC 4.79 Hgb 14.6 Hct 45.6 MCV 95 MCH 30.5 MCHC 32.0 RDW 12.6 Plt Count 235 MPV 10.9 Immature Gran % 0.4 Neutrophils % 85.2 Lymphocytes % 7.5 Monocytes % 6.5 Eosinophils % 0.1 Basophils % 0.3 Nucleated RBC % 0.0 Absolute Neutrophils 15.85 H Absolute Lymphocytes 1.40 Absolute Monocytes 1.21 H Absolute Eosinophils 0.02 Absolute Basophils 0.06 PT 11.0 INR 1.1 APTT 24.2 Sodium 134 L Potassium 4.2 Chloride 99 Carbon Dioxide 24.0 Anion Gap 11.0 BUN 20 H Creatinine 0.9 Est GFR (CKD-EPI 2020) 61.87 Glucose 280 H Calcium 9.3 Magnesium 1.7 L Total Bilirubin 1.1 H AST 36 ALT 30 Alkaline Phosphatase 106 Troponin I 2790 H* NT-Pro-B Natriuret Pep 8890 H Total Protein 7.1 Albumin 3.5 Urine Color Yellow Urine Clarity Sl Cloudy Urine pH 6.0 Ur Specific [place] 1.020 Urine Protein Negative Urine Ketones 15 H Urine Blood Trace-intact H Urine Nitrite Negative Urine Bilirubin Negative Urine Urobilinogen 0.2 Ur Leukocyte Esterase Trace H Urine RBC 0-2 Urine WBC 10-20 H Ur Epithelial Cells Many Urine Crystals Negative Urine Bacteria Many Urine Mucus Negative Ur Culture Indicated? No/Sq. Contamination Urine Glucose 500 H COVID-19 Source Nasopharynx SARS-CoV-2 (PCR) Positive A Influenza Type A (PCR) Negative Influenza Type B (PCR) Negative RSV (PCR) Negative Last Vital Signs Temp 36.8 C 04/26/23 20:56 Pulse 132 H 04/26/23 22:16 Resp 23 04/26/23 22:16 BP 164/110 H 04/26/23 22:16 Pulse Ox 98 04/26/23 22:16 Time Spent Time spent with Patient: >75 minutes Time was spent: preparing to see the patient(eg.review tests), obtaining and/or reviewing separately otained hiistory, ordering medications,tests, procedures, referring, communicating with other health care mgr, indepentently interpreting results, counseling the patient, care coordination and other (Reviewed plan of care with son)
[2023-04-27] VITALS (84 sets, daily range): BP systolic 88–192; BP diastolic 38–123; PULSE 54–140; RESP 14–30; TEMP 36.2–36.8; O2SAT 83–99
[2023-04-27 00:21] LABS: Troponin I 3115 ng/L (<or=60)
--- NOTE | 2023-04-27 00:45 | ED.PROG_ITS ---
Date of service: 04/27/23 Time of Service: 00:45 Medical Decision Making Received follow-up call from [facility] cardiology, recommending heparin infusion as well as Plavix and aspirin. Echocardiogram in the morning. If any clinical deterioration or abnormalities on labs/echo, cardiology team available for fur ther consultation Discharge Plan Disposition Patient Disposition: Admit to [facility] Discharge Details Clinical Impression: Respiratory failure Primary Care Provider: Ruth Ho ED Provider: Preeti Jeffery Home Meds and New Rx's Prescriptions: No Action naproxen sodium [Aleve] 220 mg tablet 220 mg PO BID PRN desonide 0.05 % Cream 1 applic TOPICAL BID amlodipine 2.5 mg Tablet 2.5 mg PO DAILY (DME) OneTouch Ultra Blue Test Strip Strip MISCELLANEOUS (DME) lancets [OneTouch UltraSoft Lancets] Misc MISCELLANEOUS (DME) blood-glucose meter [[facility] UltraMini] Kit MISCELLANEOUS clobetasol 0.05 % Solution 1 applic TOPICAL BID (DME) pen needle, diabetic [TRUEplus Pen Needle] 31 gauge x 3/16 Needle MISCELLANEOUS latanoprost [Xalatan] 2.5 ML drops 1 drp Ophthalmic DAILY atorvastatin 40 MG tablet 40 mg PO DAILY Patient Comments: pt states dose is 20mg -MG 04/26/23 aspirin [Aspir-81] 81 MG tablet,delayed release (DR/EC) 81 mg PO DAILY nitroglycerin [Nitrostat] 0.4 MG tablet, sublingual 0.4 mg Sublingual ONCE brimonidine 15 ML drops 1 drp Ophthalmic BID metformin 500 MG tablet extended release 24hr 1,000 mg PO DAILY Levemir FlexTouch U100 Insulin 100 UNIT/1 ML insulin pen 60 u Sub-Q DAILY dorzolamide-timolol (PF) [Cosopt (PF)] 1 EACH dropperette 1 drp Ophthalmic BID multivitamin Tablet 1 tab PO DAILY mometasone 0.1 % solution 1 applic topical DAILY Nizoral A-D 1 % shampoo 1 applic topical Q3D clotrimazole 1 % cream 1 applic topical DAILY [place] 0.02-0.005 % drops 1 drp ophthalmic (eye) DAILY lisinopril 40 mg tablet 20 mg PO DAILY
[2023-04-27] MEDS: Heparin in 0.45% NaCl 25,000 UNIT/250 ML BAG 10 UNIT IV ×2 (01:16→21:21)
[2023-04-27 01:25] LABS: NT-proBNP 10239 pg/mL (<300)
[2023-04-27] MEDS: Aspirin 81 MG CHEW 324 MG CH (01:26)
[2023-04-27] MEDS: Clopidogrel 300 MG TAB PO (01:26)
[2023-04-27] MEDS: Metoprolol 12.5 MG TAB PO ×3 (02:14→18:25)
[2023-04-27] MEDS: MAGNESIUM SULFATE 2 GM/50 ML BAG IVPB (03:15)
[2023-04-27] MEDS: REMDESIVIR 200 MG in Normal Saline 250 ML 250 MG IVPB (03:31)
[2023-04-27] MEDS: Normal Saline Flush 10 ML SYR IVP ×3 (07:18→19:44)
[2023-04-27] MEDS: Furosemide 40 MG/4 ML VIAL IVP ×2 (07:19→16:59)
[2023-04-27 07:33] LABS: HCT 43.7 % (36.0-46.0); MCH 30.8 pg (27.0-33.0); MCV 96 fL (80-95); MPV 11.5 fL (8.0-11.0); Platelet Count 160 10^3/uL (130-400); RBC 4.54 10^6/uL (3.93-5.22); RDW 12.8 % (11.7-14.6); RDW-SD 45.3 fL
[2023-04-27 07:58] LABS: PTT Activated 82.2 sec (23.6-32.8)
[2023-04-27 08:00] LABS: ALT 24 U/L (14-59); AST 27 U/L (15-37); Albumin 3.2 g/dL (3.4-5.0); Alkaline Phosphatase 103 U/L (46-116); Anion Gap 9.2 mmol/L (3-11); BUN 19 mg/dL (7-18); Bilirubin, Total 0.9 mg/dL (0.2-1.0); CO2 27.8 mmol/L (21.0-32.0); CREATININE 0.9 mg/dL (0.55-1.02); Chloride 101 mmol/L (98-107); Estimated GFR 61.87 (mL/min/1.73m2); Glucose 285 mg/dL (74-106); Magnesium 2.5 mg/dL (1.8-2.4); Potassium 3.8 mmol/L (3.5-5.1); Sodium 138 mmol/L (136-145); Total Protein 6.6 g/dL (6.4-8.2)
--- NOTE | 2023-04-27 08:00 | DI.US_ITS ---
APPROVED REPORT EXAM: Comprehensive 2D, Doppler, and color-flow Echocardiogram Patient Location: In-Patient Room/Bed: [address] Hand: Bjorn Reagan RDCS (AE) Indications: new onset atrial fibrillation Other Information Study Quality: Technically Limited. Technically limited study due to body habitus, inability to posit ion patient. Conclusion Technically difficult and suboptimal study Left ventricle is grossly normal in size and wall thickness. Ejection fraction is 35% with global hy pokinesis. Patient is in atrial fibrillation with [id number] variation Grossly normal right ventricular size and systolic function Both atria are mildly enlarged. There is left to right shunt mid atrial septum Sclerotic aortic valve without stenosis or regurgitation Mitral annular calcification, mild mitral regurgitation Normal tricuspid valve with mild to moderate regurgitation. Estimated right ventricular systolic pre ssure is 48 mmHg Wall motion Left Ventricle The left ventricle is normal size. Left ventricular systolic function is moderately decreased. There is normal left ventricular wall thickness. There is global hypokinesis of the left ventricle. There i s no ventricular septal defect visualized. LVEF is 35%. Right Ventricle The right ventricle is normal size. Right ventricular systolic function could not be assessed. The RV SP is 48.7 mmHg. Atria Left atrium is mildly dilated Right atrium is mildly dilated Doppler suggests left to right interatri al shunt. Aortic Valve The Aortic valve is sclerotic. Aortic valve is trileaflet. There is no aortic valvular stenosis. No a ortic regurgitation is present. Mitral Valve Moderate mitral annular calcification. No evidence of mitral valve stenosis. Mild mitral regurgitatio n. Tricuspid Valve Tricuspid valve is not well visualized. There is no tricuspid valve stenosis. Mild to moderate tricus pid regurgitation. Pulmonic Valve Pulmonic valve is not well visualized. There is no pulmonic valvular stenosis. Trace pulmonic regurgi tation. Great Vessels The aortic root is normal in size. The ascending aorta is normal in size. Aortic arch is not well vis ualized. The IVC collapses <50% with inspiration. Pericardium There is no pericardial effusion. 2D Dimensions IVSD d PLAX 0.98 cm F: 0.6-1.0 Ao Root d 3.16 cm F: 2.7 - 3.3 LVPW d PLAX 1.06 cm F: 0.6 - 1.0 Ao Asc Diam d 2.96 cm F: 2.3 - 3.1 LVID d PLAX 5.10 cm F: 3.8 - 5.2 LVDs 4.12 cm F: 2.2 - 3.5 LV EF Teichholz 39.3 % FS 19.20 % LV EDV (Teich) 123.5 mL LV ESV (Teich) 75.0 mL Stroke Vol Index (Teich) 25.44 M-Mode TAPSE 1.48 cm (M/F) >1.7 LV Volumes - Method of Disks (Aquino's) Single Plane 2D LV Volumes Biplane 2D LV Volumes LV EDV A4C 95.7 mL LV EDV BP 104.61 mL F: 46 - 106 LV ESV A4C 61.3 mL LV ESV BP 72.9 mL LVEF(%) A4C 36.0 % LVEF(%) BP 30.31 % F: 54 - 74 LV EDV A2C 105.3 mL LV EDV BP Index 54.48 mL/m2 F: 29 - 61 LV ESV A2C 71.4 mL SV BP LVEF(%) A2C 32.2 % SV Index LA Volume LA Length A4C 5.0 cm LA Length A2C LA Area A4C s 14.12 cm2 LA Area A2C s LA Vol A4C A-L 34.02 mL LA Vol A2C A-L LA Vol Biplane A-L LA Vol A4C MOD 30.9 mL LA Vol A2C MOD LA Vol BP MOD LV Diastology MV E' medial 0.059 (>0.07 m/s) MV E Vmax 0.98 (0.4-1.3 m/s) MV E' lateral 0.103 (>0.1 m/s) Aortic Valve AoV Vmax 0.93 m/s LVOT Vmax 0.63 m/s AoV Peak Grad 3.5 mmHg LVOT Peak Grad 1.6 mmHg AoV Area (Vmax) 1.64 cm2 LVOT VTI 0.108 m AoV VTI 0.159 m LVOT Mean Grad 0.9 mmHg AoV Mean Fernando. 0.66 m/s LVOT SV 25.99 mL AoV Mean Grad 1.9 mmHg LVOT Diam s 1.75 cm AoV Area (VTI) 1.64 cm2 Velocity Ratio 0.68 Pulmonary Valve PV Vmax 0.81 (0.5-1.5 m/s) RVOT Vmax 0.57 m/s PV Peak Grad 2.6 mmHg RVOT Peak Gr. 1.3 mmHg PV Mean Fernando 0.52 m/s RVOT VTI 0.081 m PV Mean Grad 1.2 mmHg RVOT Mean Gr. 0.7 mmHg Tricuspid Valve RA Pressure 8.00 mmHg TR Vmax 3.19 m/s TR Peak Grad 40.7 mmHg RVSP (TR) 48.7 mmHg
[2023-04-27 08:04] LABS: Troponin I 4074 ng/L (<or=60)
--- NOTE | 2023-04-27 08:05 | INITIAL_ITS ---
Date of service: 04/27/23 Time of Service: 08:05 Care Management Initial Assmt Initial Assessment REASON FOR HOSPITALIZATION:: Afib with RVR, Non-Stemi, acute Covid-19 PREVIOUS FUNCTIONAL STATUS/SOCIAL/FAMILY SUPPORTS:: Resides in [facility] with son. Independent at baseline. Insulin dependent. CURRENT FUNCTIONAL STATUS:: Covid precautions in ICU. ADVANCE DIRECTIVES:: None on file. Has patient been provided with info about the portal/API?: No Did the patient sign up for the portal?: No CODE STATUS:: Full Code CODE STATUS COMMENT:: Discussed with MD; remains Full Code. INSURANCE COVERAGE / FINANCIAL ISSUES:: [facility] CURRENT HOME/COMMUNITY SERVICES/EQUIPMENT:: None, currently. PRIMARY CARE PHYSICIAN:: Ruth Ho POTENTIAL DISCHARGE NEEDS:: Review of community based supports, follow up appointments. PATIENT/FAMILY EDUCATION NEEDS:: Review discharge instructions, discuss Ask Me Three. ANTICIPATED BARRIERS TO DISCHARGE:: None identified. TRANSPORTATION:: Dependent on disposition; anticipate she will transport via private vehicle with son. If transferred she will transport via EMS. PLAN:: Uday continues to be closely monitored and treated. per MD transfer is being sought to tertiary at this time. CM continues to follow. PFSH All Active Problems (Updated 04/27/23 @ 12:38 by Young Pyle MD) Hypomagnesemia (Acute) Respiratory failure (Acute) Acute COVID-19 (Acute) NSTEMI (non-ST elevated myocardial infarction) (Acute) CHF (congestive heart failure) (Chronic) Atrial fibrillation with rapid ventricular response (Acute) Colonic polyp (Acute) Hip pain, left (Acute) Risk for falls (Acute) Weakness (Acute) Tiredness (Acute) Paresthesia (Acute) Constipation (Acute) Actinic keratosis (Acute) Low back pain (Acute) Sciatica (Acute) Urinary incontinence (Acute) Medical History (Updated 04/27/23 @ 12:38 by Young Pyle MD) Screening mammogram, encounter for Preventative health care Urinary incontinence, mixed Chronic low back pain Hyperplastic colonic polyp Basal cell carcinoma Glaucoma Psoriasis Obesity Pain of left hip joint Overactive bladder Osteopenia Depression Memory impairment Mitral regurgitation HTN (hypertension) HLD (hyperlipidemia) CAD (coronary artery disease) Diabetes mellitus Dysuria Social History Smoking/Tobacco Use Status: Never Smoking risk assessment performed?: Yes Alcohol Intake: never Drug use: Never Substance use type: does not use Household members: children Housing: house Number of Children: 3 current occupation: Retired What type of physical activity do you participate in: independent ambulation Do you feel safe at home: Yes Do you feel safe in your relationship?: Yes
[2023-04-27] MEDS: Aspirin E.C. 81 MG TABEC PO (08:57)
[2023-04-27] MEDS: Clopidogrel 75 MG TAB PO (08:57)
[2023-04-27] MEDS: Lisinopril 10 MG TAB PO (08:58)
[2023-04-27] MEDS: Dexamethasone 4 MG TAB 10 MG PO (08:58)
[2023-04-27] MEDS: Multivitamin TAB 1 TAB PO (08:58)
[2023-04-27] MEDS: Dorzolamide 2% 10 ML BTL OP ×2 (09:48→19:43)
[2023-04-27] MEDS: Insulin Aspart 300 UNITS/3 ML PEN SC ×4 (09:49→22:31)
[2023-04-27] MEDS: Timolol 0.5% 5 ML BTL OP ×2 (09:49→19:43)
[2023-04-27] MEDS: Metoprolol 5 MG/5 ML VIAL 2.5 MG IVP (09:52)
[2023-04-27 11:30] LABS: Troponin I 3537 ng/L (<or=60)
--- NOTE | 2023-04-27 12:20 | PGE_ITS ---
Date of Service Date of service: 04/27/23 Time of Service: 12:21 Assessment and Plan Assessment and plan (1) Atrial fibrillation with rapid ventricular response: Status: Acute Assessment and plan: hold metoprolol, begin diltiazem drip, continue heparin drip, continue DAPT for her [place]; [place] [facility] [place] if patient desirese transfer. Critical care time spent interviewing and examining the patient, reviewing studies, discussing case with patient's nurse and consulting physicians was 45 minutes (2) NSTEMI (non-ST elevated myocardial infarction): Status: Acute Assessment and plan: continue DAPT, heparin drip, diurese her CHF. I discussed w/ her about transferring her [place] [facility] [place], she wants to think about it and talk it over w/ her son. She has had prior PCI st[place] in the [place] [facility] [place] (3) Hypomagnesemia: Start date: 04/26/23 Status: Acute Assessment and plan: IV repletion and trend labs. (4) CHF (congestive heart failure): Status: Chronic Assessment and plan: continue iv lasix, slow her afib rate down, when hemodynamically stable and euvolemic then begin Entresto and Jardiance and convert to oral diuretics w/ spironolactone and oral lasix. Qualifiers: Heart failure type: combined systolic and diastolic Heart failure chronicity: acute Qualified Code(s): I50.41 - Acute combined systolic (congestive) and diastolic (congestive) heart failure (5) Acute COVID-19: Status: Acute Assessment and plan: continue Remdesivir and dexamethasone. enourage IS and acapella (6) CAD (coronary artery disease): Assessment and plan: Status post cardiac catheterization and stenting in 1997 and 2007. No recent intervention but patient is open to repeat cardiac catheterization if indicated but wants to talk this over w/ her son. Qualifiers: Coronary Disease-Associated Artery/Lesion type: [place] artery [place] vs. transplanted heart: seminole heart Associated angina: without angina Qualified Code(s): I25.10 - Atherosclerotic heart disease of [place] coronary artery without angina pectoris (7) Diabetes mellitus: Assessment and plan: Hold metformin and glucometer measurements before meals and bedtime with short acting insulin coverage. This may be exacerbated by dexamethasone and patient may need basal insulin during her hospital stay. I have held her ususal dose of levemir 60 units and put her on NPH for coverage of the dexamethsone (0.5 units insulin per 1 mg prednisone equivalent; dexamethasone 10 mg is equivalent to 66 mg prednisone, I will start w/ NPH 20 units and give her a longer acting Lantus 10 units at night. continue novolog sliding scale. Qualifiers: Diabetes mellitus type: type 2 Diabetes mellitus terminal carman insulin use: with terminal carman use Diabetes mellitus complication status: without complication Qualified Code(s): E11.9 - Type 2 diabetes mellitus without complications; Z79.4 - terminal operations supervisor (current) use of insulin Subjective Subjective Interval history since last seen: Patient denies any CP or dyspnea now. She did present w/ acute dyspnea of a few days duration and non productive cough but no fever or rigors or chest pain. She was found to have COVID-19 and had NSTEMI w/ rapid atrial fibrillation and acute CHF. She was given iv diltiazem and lasix and begun on aspirin, plavix and heparin. She was not started on iv diltiazem drip but begun on metoprolol, however her afib rate still has not been adequately controlled running in the 110's. She is sitting up eating lunch and not acutely dyspneic. Exam Narrative Exam Narrative: Elderly white female sitting up in her chair eating her lunch no acute distress. She is able to talk in complete sentences without any dyspnea. No accessory respiratory muscle use she is 90 requiring any supplemental oxygen. Oxygen saturation is 92% on room air. Lungs are clear anteriorly posterior she has bibasilar rales no rhonchi no wheezing Heart is regular regular did not appreciate a murmur or gallop Abdomen soft nontender distended Lower extremities without edema Avery catheter draining clear yellow urine. Objective Last Vital Signs Temp 36.4 C L 04/27/23 08:00 Pulse 127 H 04/27/23 11:02 Resp 26 H 04/27/23 11:02 BP 113/77 04/27/23 11:02 Pulse Ox 93 04/27/23 11:02 Laboratory Results - last 24 hr 04/26/23 04/26/23 04/26/23 20:36 23:10 23:49 WBC 18.60 H RBC 4.79 Hgb 14.6 Hct 45.6 MCV 95 MCH 30.5 MCHC 32.0 RDW 12.6 Plt Count 235 MPV 10.9 Immature Gran % 0.4 Neutrophils % 85.2 Lymphocytes % 7.5 Monocytes % 6.5 Eosinophils % 0.1 Basophils % 0.3 Nucleated RBC % 0.0 Absolute Neutrophils 15.85 H Absolute Lymphocytes 1.40 Absolute Monocytes 1.21 H Absolute Eosinophils 0.02 Absolute Basophils 0.06 PT 11.0 INR 1.1 APTT 24.2 Sodium 134 L Potassium 4.2 Chloride 99 Carbon Dioxide 24.0 Anion Gap 11.0 BUN 20 H Creatinine 0.9 Est GFR (CKD-EPI 2020) 61.87 Glucose 280 H Calcium 9.3 Magnesium 1.7 L Total Bilirubin 1.1 H AST 36 ALT 30 Alkaline Phosphatase 106 Troponin I 2790 H* 3115 H* NT-Pro-B Natriuret Pep 8890 H 71914 H Total Protein 7.1 Albumin 3.5 Urine Color Yellow Urine Clarity Sl Cloudy Urine pH 6.0 Ur Specific Bath 1.020 Urine Protein Negative Urine Ketones 15 H Urine Blood Trace-intact H Urine Nitrite Negative Urine Bilirubin Negative Urine Urobilinogen 0.2 Ur Leukocyte Esterase Trace H Urine RBC 0-2 Urine WBC 10-20 H Ur Epithelial Cells Many Urine Crystals Negative Urine Bacteria Many Urine Mucus Negative Ur Culture Indicated? No/Sq. Contamination Urine Glucose 500 H COVID-19 Source Nasopharynx SARS-CoV-2 (PCR) Positive A Influenza Type A (PCR) Negative Influenza Type B (PCR) Negative RSV (PCR) Negative 04/27/23 04/27/23 07:15 10:55 WBC 16.00 H RBC 4.54 Hgb 14.0 Hct 43.7 MCV 96 H MCH 30.8 MCHC 32.0 RDW 12.8 Plt Count 160 MPV 11.5 H Immature Gran % Neutrophils % Lymphocytes % Monocytes % Eosinophils % Basophils % Nucleated RBC % Absolute Neutrophils Absolute Lymphocytes Absolute Monocytes Absolute Eosinophils Absolute Basophils PT INR APTT 82.2 H* Sodium 138 Potassium 3.8 Chloride 101 Carbon Dioxide 27.8 Anion Gap 9.2 BUN 19 H Creatinine 0.9 Est GFR (CKD-EPI 2020) 61.87 Glucose 285 H Calcium 9.0 Magnesium 2.5 H Total Bilirubin 0.9 AST 27 ALT 24 Alkaline Phosphatase 103 Troponin I 4074 H* 3537 H* NT-Pro-B Natriuret Pep Total Protein 6.6 Albumin 3.2 L Urine Color Urine Clarity Urine pH Ur Specific Bath Urine Protein Urine Ketones Urine Blood Urine Nitrite Urine Bilirubin Urine Urobilinogen Ur Leukocyte Esterase Urine RBC Urine WBC Ur Epithelial Cells Urine Crystals Urine Bacteria Urine Mucus Ur Culture Indicated? Urine Glucose COVID-19 Source SARS-CoV-2 (PCR) Influenza Type A (PCR) Influenza Type B (PCR) RSV (PCR) Time Spent with Patient Time Spent with Patient: 35-49 minutes Time was spent: preparing to see the patient(eg.review tests), obtaining and/or reviewing separately otained hiistory, ordering medications,tests, procedures, referring, communicating with other health care information associate, indepentently interpreting results, counseling the patient and care coordination
[2023-04-27] MEDS: dilTIAZem 25 MG/5 ML VIAL 5 MG IVP (13:12)
[2023-04-27] MEDS: dilTIAZem 125 MG in Normal Saline 100 ML IV (14:19)
[2023-04-27 14:34] LABS: Troponin I 3528 ng/L (<or=60)
--- NOTE | 2023-04-27 14:38 | NUR.NOTE ---
Nursing Note: Trending critical troponins 4074 -> 3537 -> 3528. Physician Dr. Pyle present on unit for first two notifications and final one webexed.
--- NOTE | 2023-04-27 14:44 | CHAPLAIN ---
I know Uday from when her was here many years ago. He either here, or shortly after he was discharged. Uday had a son who several years ago, and another son, Nemesio who is very supportive. Because Uday has COVID I did not visit with her. I spoke with Nemesio. And sent a prayer shawl into Uday.
[2023-04-27] MEDS: dilTIAZem 25 MG/5 ML VIAL 10 MG IVP (16:59)
[2023-04-27] MEDS: Cholecalciferol (Vitamin D3) 1,000 UNIT TAB 2000 UNITS PO (17:00)
[2023-04-27] MEDS: Latanoprost 0.005% 2.5 ML BTL OU (19:42)
[2023-04-27] MEDS: Atorvastatin 40 MG TAB 80 MG PO (19:42)
[2023-04-27 20:37] LABS: PTT Activated 60.4 sec (23.6-32.8)
[2023-04-27 22:21] LABS: Glucose 438 mg/dL (74-106)
[2023-04-27] MEDS: Insulin Glargine 300 UNITS/3 ML PEN 15 UNITS SC (22:29)
[2023-04-27] MEDS: dilTIAZem 125 MG in Normal Saline 100 ML 10 MG IV (23:20)
[2023-04-28] VITALS (49 sets, daily range): BP systolic 81–134; BP diastolic 44–105; PULSE 48–129; RESP 16–29; TEMP 36.1–36.4; O2SAT 90–100
--- NOTE | 2023-04-28 | DI.RAD_ITS ---
Exam(s) XR PORTABLE CHEST AP EXAM: XR PORTABLE CHEST AP CLINICAL HISTORY: CHF TECHNIQUE: 2D digital imaging was performed. COMPARISON: CR CHEST 2 VIEWS PA,LAT from 12/19/[address] CHEST PE CTA from 04/26/2023 FINDINGS: LUNGS: Clear. No pulmonary edema visible. Minimal blunting at the costophrenic angles. HEART: Enlarged. AORTA: Normal diameter. BONES: Unremarkable for age. Soft tissues: Unremarkable. IMPRESSION: Tiny bilateral pleural effusions. Cardiomegaly. No overt pulmonary edema. DATA REPOSITORY: RADIATION DOSE DELIVERED:
[2023-04-28] MEDS: REMDESIVIR 100 MG in Normal Saline 250 ML 250 MG IVPB (03:10)
[2023-04-28] MEDS: Docusate Sodium 100 MG CAP PO ×2 (05:20→08:57)
[2023-04-28] MEDS: Metoprolol 12.5 MG TAB PO ×3 (05:20→17:45)
[2023-04-28 06:53] LABS: Abs Immature Grans 0.09 10^3/uL (0.0-0.06); Absolute Basophil Count 0.04 10^3/uL (0.0-0.2); Absolute Monocyte Count 0.79 10^3/uL (0.1-0.8); Basophils % 0.2; HCT 39.2 % (36.0-46.0); HGB 12.9 g/dL (11.2-15.7); Immature Grans % 0.5; Lymphocytes % 5.7; MCH 30.6 pg (27.0-33.0); MCHC 32.9 % (32.0-36.0); MCV 93 fL (80-95); Monocytes % 4.2; Neutrophils % 89.4; Platelet Count 216 10^3/uL (130-400); RBC 4.22 10^6/uL (3.93-5.22); RDW 12.6 % (11.7-14.6); RDW-SD 43.1 fL; WBC 18.86 10^3/uL (4.4-10.8)
[2023-04-28 07:01] LABS: Absolute Lymphocyte Count 1.08 10^3/uL (1.2-3.4); Absolute Neutrophil Count 16.86 10^3/uL (1.2-6.7)
[2023-04-28 07:12] LABS: ALT 20 U/L (14-59); AST 20 U/L (15-37); Alkaline Phosphatase 90 U/L (46-116); Anion Gap 8.2 mmol/L (3-11); BUN 32 mg/dL (7-18); Bilirubin, Total 0.6 mg/dL (0.2-1.0); C-Reactive Protein 9.89 mg/dL (0.0-0.3); CO2 29.8 mmol/L (21.0-32.0); Calcium 9.2 mg/dL (8.5-10.1); Chloride 98 mmol/L (98-107); Estimated GFR 54.53 (mL/min/1.73m2); Glucose 193 mg/dL (74-106); LDH 238 U/L (81-234); Potassium 3.4 mmol/L (3.5-5.1); Sodium 136 mmol/L (136-145); Total Protein 6.3 g/dL (6.4-8.2)
[2023-04-28 07:18] LABS: NT-proBNP 6813 pg/mL (<300)
[2023-04-28 07:42] LABS: Ferritin 466 ng/mL (8-252)
[2023-04-28] MEDS: Insulin NPH-Human 300 UNITS/3 ML PEN 30 UNIT SC (07:53)
[2023-04-28 07:54] LABS: Procalcitonin < 0.1 ng/mL; Vitamin D 25 Total 58.1 ng/mL (30-100)
[2023-04-28] MEDS: Insulin Aspart 300 UNITS/3 ML PEN SC ×4 (07:54→21:02)
[2023-04-28] MEDS: Furosemide 40 MG/4 ML VIAL IVP ×2 (07:59→16:04)
[2023-04-28 08:10] LABS: PTT Activated 71.2 sec (23.6-32.8)
[2023-04-28] MEDS: Clopidogrel 75 MG TAB PO (08:15)
[2023-04-28] MEDS: Aspirin E.C. 81 MG TABEC PO (08:15)
[2023-04-28] MEDS: Cholecalciferol (Vitamin D3) 1,000 UNIT TAB 2000 UNITS PO (08:15)
[2023-04-28] MEDS: Dexamethasone 4 MG TAB 10 MG PO (08:16)
[2023-04-28] MEDS: Multivitamin TAB 1 TAB PO (08:16)
[2023-04-28] MEDS: Lisinopril 10 MG TAB PO (08:16)
[2023-04-28 08:27] LABS: D-Dimer 536 ng/mlFEU (<500)
[2023-04-28] MEDS: Timolol 0.5% 5 ML BTL OP ×2 (08:57→18:42)
[2023-04-28] MEDS: Polyethylene Glycol 3350 17 GM PACKET PO (08:57)
[2023-04-28] MEDS: Dorzolamide 2% 10 ML BTL OP ×2 (08:58→18:41)
--- NOTE | 2023-04-28 08:59 | NUR.NOTE ---
RN gives Dr. Pyle a telephonic report on patient's condition. Vital signs are stable. Patient up in chair doing well. Patient has off loaded 450ml of urine on this shift so far. Patient is afebrile.Nursing Note:
--- NOTE | 2023-04-28 10:00 | W.PM.PROGNOT ---
Date of Service Date of service: 04/28/23 Time of Service: 10:00 Assessment and Plan Assessment and plan (1) Atrial fibrillation with rapid ventricular response: Status: Acute Assessment and plan: diltiazem dripped weaned off last night. Now on lopressor 12.5 mg po q6h, will adjust dose for rate control (resting <90 bpm, active <120 bpm), continue heparin (transition to [place]), treat [place] w/ DAPT, continue diuresis for CHF, spironolactone added. Critical care time spent interviewing and examining the patient, reviewing studies, discussing case with patient's nurse and consulting physicians was 45 minutes (2) NSTEMI (non-ST elevated myocardial infarction): Status: Acute Assessment and plan: as above. will call [facility] [place] [place] first then [facility]. Patient currently on heparin drip, atorvastatin, metoprolol, DAPT. will check lipid profile (3) Hypomagnesemia: Start date: 04/26/23 Status: Acute Assessment and plan: repleted, monitor and replace as needed (4) CHF (congestive heart failure): Status: Chronic Assessment and plan: continue iv lasix, add spironolactone. when euvolemic then add Entresto and jardiance Qualifiers: Heart failure type: combined systolic and diastolic Heart failure chronicity: acute Qualified Code(s): I50.41 - Acute combined systolic (congestive) and diastolic (congestive) heart failure (5) Acute COVID-19: Status: Acute Assessment and plan: continue Remdesivir (day#2 of 5) and dexamethasone. enourage IS and acapella empiric coverage w/ Rocephin and doxycycline, particularly in light of leukocytosis however, she is not coughing up any purulent sputum. if repeat procalcitonin is normal then consider dc antibiotics. (6) CAD (coronary artery disease): Assessment and plan: Status post cardiac catheterization and stenting in 1997 and 2007. No recent intervention but patient is open to repeat cardiac catheterization if indicated. I will discuss w/ [facility] and [facility] Qualifiers: Coronary Disease-Associated Artery/Lesion type: [place] artery [place] vs. transplanted heart: [place] heart Associated angina: without angina Qualified Code(s): I25.10 - Atherosclerotic heart disease of [place] coronary artery without angina pectoris (7) Diabetes mellitus: Assessment and plan: holding metformin, coverage w/ NPH (for her dexamethasone) and Lantus and novolog per sliding scale; add meal coverage Qualifiers: Diabetes mellitus type: type 2 Diabetes mellitus buttermaker continuous churn insulin use: with fpc use Diabetes mellitus complication status: without complication Qualified Code(s): E11.9 - Type 2 diabetes mellitus without complications; Z79.4 - ferry terminal supervisor (current) use of insulin Subjective Subjective Interval history since last seen: Patient is feeling better, less dyspnea, no CP. afib rate is much better controlled. diltiazem drip was stopped last night. Family is here to visit, I spoke w/ her son Keith and grandson Keith who were here from [place]. I explained to them that she had an [place] and developed rapid atrial fibrillation and went into CHF in addition to getting COVID-19. I reviewed her treatment with them. I asked her whether or not she would be willing to be referred to either [facility] or [facility] for heart catheterization and she said she would although family prefers [facility] over [facility] as they are already in [place]. I told them that I have to call the closest facility first and if [facility] has no beds then I can refer her to [facility]. Exam Narrative Exam Narrative: Elderly white female sitting up in her chair visiting with her sons. She does. No acute distress. Lungs are clear anteriorly. She has some bibasilar rales no wheezing Heart is regular rate and rhythm rate is better controlled 90s to low 100s. Abdomen soft nontender nondistended Extremities without peripheral cyanosis or edema Avery catheter is draining clear yellow urine w/ a few mucous strands Objective Last Vital Signs Temp 36.1 C L 04/28/23 09:00 Pulse 94 H 04/28/23 09:00 Resp 18 04/28/23 09:00 BP 112/83 04/28/23 09:00 Pulse Ox 95 04/28/23 09:00 Laboratory Results - last 24 hr 04/27/23 04/27/23 04/27/23 10:55 14:08 15:07 WBC RBC Hgb Hct MCV MCH MCHC RDW Plt Count MPV Immature Gran % Neutrophils % Lymphocytes % Monocytes % Eosinophils % Basophils % Nucleated RBC % Absolute Neutrophils Absolute Lymphocytes Absolute Monocytes Absolute Eosinophils Absolute Basophils APTT Cancelled D-Dimer Sodium Potassium Chloride Carbon Dioxide Anion Gap BUN Creatinine Est GFR (CKD-EPI 2020) Glucose Calcium Ferritin Total Bilirubin AST ALT Alkaline Phosphatase Lactate Dehydrogenase Troponin I 3537 H* 3528 H* C-Reactive Protein NT-Pro-B Natriuret Pep Total Protein Albumin 25-OH Vitamin D Total Procalcitonin 04/27/23 04/27/23 04/28/23 20:15 22:00 06:30 WBC 18.86 H RBC 4.22 Hgb 12.9 Hct 39.2 MCV 93 MCH 30.6 MCHC 32.9 RDW 12.6 Plt Count 216 MPV 11.0 Immature Gran % 0.5 Neutrophils % 89.4 Lymphocytes % 5.7 Monocytes % 4.2 Eosinophils % 0.0 Basophils % 0.2 Nucleated RBC % 0.0 Absolute Neutrophils 16.86 H Absolute Lymphocytes 1.08 L Absolute Monocytes 0.79 Absolute Eosinophils 0.00 Absolute Basophils 0.04 APTT 60.4 H Cancelled D-Dimer Cancelled Sodium 136 Potassium 3.4 L Chloride 98 Carbon Dioxide 29.8 Anion Gap 8.2 BUN 32 H Creatinine 1.0 Est GFR (CKD-EPI 2020) 54.53 Glucose 438 H 193 H Calcium 9.2 Ferritin 466 H Total Bilirubin 0.6 AST 20 ALT 20 Alkaline Phosphatase 90 Lactate Dehydrogenase 238 H Troponin I C-Reactive Protein 9.89 H NT-Pro-B Natriuret Pep 6813 H Total Protein 6.3 L Albumin 3.0 L 25-OH Vitamin D Total 58.1 Procalcitonin < 0.1 04/28/23 07:40 WBC RBC Hgb Hct MCV MCH MCHC RDW Plt Count MPV Immature Gran % Neutrophils % Lymphocytes % Monocytes % Eosinophils % Basophils % Nucleated RBC % Absolute Neutrophils Absolute Lymphocytes Absolute Monocytes Absolute Eosinophils Absolute Basophils APTT 71.2 H D-Dimer 536 H Sodium Potassium Chloride Carbon Dioxide Anion Gap BUN Creatinine Est GFR (CKD-EPI 2020) Glucose Calcium Ferritin Total Bilirubin AST ALT Alkaline Phosphatase Lactate Dehydrogenase Troponin I C-Reactive Protein NT-Pro-B Natriuret Pep Total Protein Albumin 25-OH Vitamin D Total Procalcitonin Time Spent with Patient Time Spent with Patient: 35-49 minutes Time was spent: preparing to see the patient(eg.review tests), ordering medications,tests, procedures, referring, communicating with other health palliative care physician, indepentently interpreting results, counseling the patient and care coordination
--- NOTE | 2023-04-28 10:14 | NUR.NOTE ---
APTT is 71.2 which is indicates Heparin drip dosing is therapeutic. Next APTT will be in the morning on 04/29/2023.Nursing Note:
--- NOTE | 2023-04-28 10:42 | CMPROGNOTE_ITS ---
Date of service: 04/28/23 Time of Service: 10:42 Care Management Progress Note Progress Note Text Progress Note Text: S/O: Uday remains on covid precautions, therefore CM did not meet with her in person. CM did observe her sitting up in her chair eating lunch. Per RN, she is doing well today, and is on room air. Per report, MD continues to seek transfer to tertiary care, and has reached out to both [facility] and [facility]. Uady is agreeable to this plan. CM will continue to follow. A: Uday is an 88 year old female admitted to [facility] on 04/26/23 with afib with RVR, non STEMI, Covid. P: Uday is being closely monitored at ICU level of care. MD continues to seek transfer to tertiary care, pending bed availability. She will transport via EMS, coordinated by RN Continuous Dryout Operator Helper. She will follow up with her PCP and discharge plan of care. CM will continue to follow.
[2023-04-28] MEDS: DOXYCYCLINE 100 MG in Normal Saline 100 ML IVPB (10:45)
[2023-04-28] MEDS: cefTRIAXone 2 GM/50 ML BAG IVPB (10:46)
[2023-04-28 11:00] LABS: Lab Add On Test DONE
[2023-04-28 11:10] LABS: Magnesium 2.1 mg/dL (1.8-2.4)
[2023-04-28 11:15] LABS: Hemoglobin A1C 7.5 % (<5.7)
[2023-04-28 12:52] LABS: Bilirubin Negative (Negative); Blood Trace-lysed (Negative); Clarity Clear (Clear); Glucose Negative (Negative); Ketones Negative (Negative); Leukocyte Esterase Small (Negative); Nitrite Negative (Negative); Urobilinogen 0.2 mg/dL (Up to 0.2)
[2023-04-28 13:05] LABS: Bacteria Few HPF (Negative); C & S Indicated? C&S Done As Ordered; Casts 0-2 Hyaline LPF (Negative); Crystals Few Amorphous HPF (Negative); Epithelial Cells Few HPF (Negative); Mucus Negative (Negative); RBC 0-2 HPF (0-2)
[2023-04-28] MEDS: Potassium Chloride 10 MEQ CAPCR 20 MEQ PO (13:22)
[2023-04-28] MEDS: Spironolactone 25 MG TAB PO (13:23)
--- NOTE | 2023-04-28 13:48 | NUR.NOTE ---
RN calls maintenance to repair patient's television and same is repaired much to the appreciation of the patient.Nursing Note:
--- NOTE | 2023-04-28 13:53 | NUR.NOTE ---
Patient's son in to visit his mother.Nursing Note:
[2023-04-28] MEDS: Normal Saline Flush 10 ML SYR IVP ×2 (16:04→19:53)
[2023-04-28] MEDS: Atorvastatin 40 MG TAB 80 MG PO (18:39)
[2023-04-28] MEDS: Brimonidine 0.15% 5 ML BTL OP (18:40)
[2023-04-28] MEDS: Potassium Chloride 20 MEQ TABCR PO (18:45)
[2023-04-28] MEDS: Metoprolol 5 MG/5 ML VIAL 2.5 MG IVP (19:51)
--- NOTE | 2023-04-28 19:56 | DSE_ITS ---
Date of service: 04/28/23 Time of Service: 19:56 DS: Diagnosis Discharge Diagnosis (1) Atrial fibrillation with rapid ventricular response: Status: Acute Asessment and Plan: new onset, patient treated w/ iv diltiazem and transitioned to oral lopressor in setting of an acute [place], patient was started on systemic heparin, loaded w/ Plavix and aspirin and put on daily DAPT. Echocardiogram was performed demonstrating the following: Conclusion Technically difficult and suboptimal study Left ventricle is grossly normal in size and wall thickness. Ejection fraction is 35% with global hypokinesis. Patient is in atrial fibrillation with oxov-ab-xygz variation Grossly normal right ventricular size and systolic function Both atria are mildly enlarged. There is left to right shunt mid atrial septum Sclerotic aortic valve without stenosis or regurgitation Mitral annular calcification, mild mitral regurgitation Normal tricuspid valve with mild to moderate regurgitation. Estimated right v entricular systolic pressure is 48 mmHg Patient was diuresed w/ iv lasix and put on oral spironolactone. She was continuing to receive iv lasix through her hospital course and diuresed net negative 2 liters as of this writing. (2) NSTEMI (non-ST elevated myocardial infarction): Status: Acute Asessment and Plan: as above. Patient and family have opted for transfer to [facility] for further evaluation to include cardiac cath. Patient has some mild dementia but has decision making capacity and after she consulted w/ her sons has decided to proceed w/ cardiac catheterization and PCI if needed. (3) Hypomagnesemia: Status: Acute Asessment and Plan: 1.7 on admission and corrected w/ oral replacement (4) CHF (congestive heart failure): Status: Chronic Asessment and Plan: new ischemic HFREF w/ LVEF 35% w/ global hypokinesis, see above regarding treatment. (5) Acute COVID-19: Status: Acute Asessment and Plan: patient treated w/ Remdesivir and dexamethasone, vitamin D (6) CAD (coronary artery disease): Asessment and Plan: prior hx of CAD w/ PCI in 1997 and 2007. Now w/ new NSTEMI see above (7) Diabetes mellitus: Asessment and Plan: type II DM treated w/ oral (metformin) and insulin, glycohemoglobin A1C was 7.5%. Blood sugars initially were in the 300's and up to 438 but w/ use of NPH for coverage of her dexamethasone and using sliding scale Novolog and low dose Lantus we got her glucose down to 180 to low 200's. Discharge Plan Disposition Patient Disposition: Transfer-Acute Inpatient Care Specific Acute Inpt Facility: [facility] Condition: Improving Discharge Details Reason For Visit: Atrial fibrillation with RVR, non-STEMI, acute COV Admit Date/Time: 04/26/23 23:34 Admit Provider: Baldemar Quiroga Attending Provider: Baldemar Quiroga Primary Care Provider: [facility] Hospital Course: 88-year-old female with history of new onset atrial fibrillation with rapid ventricular response was found to be in acute congestive heart failure and having an NSTEMI and was found to have an acute COVID-19 infection. Previous history was remarkable for coronary artery disease with previous coronary stents placed in 1997 and 2007 at [facility]. EKG demonstrated rapid atrial fibrillation w/ rates of 109 to 121 bpm and she had diffuse ST depression acorss anterolateral lead as well as I and aVL. Troponin initially was 2790 and dante to 4074. Her symptoms included acute dyspnea and hypoxemia that been preceded by 7 days of generalized malaise and mild cough and progressive worsening of her dyspnea. She denies any chest pain. [facility] cardiology was called by the [facility] ED providers who advised dual antiplatelet therapy systemic heparin. [facility] lack of bed capacity and advised hospitalization at [facility]. ED provider also contacted [facility] and found that they had no bed capacity. Patient was treated with IV Lasix systemic heparin and dual antiplatelet therapy with aspirin and Plavix. Patient diuresed well and is net negative over 2 L. Her hypoxemia has resolved and she is maintaining oxygen saturation in the high 90s on room air. She was started on spironolactone and continues to receive IV Lasix and potassium supplementation. Her rapid atrial fibrillation responded to initial bolus of diltiazem given in the emergency department. The admitting hospitalist however decided not to continue on diltiazem drip because the patient had acute congestive heart failure. Patient was started on scheduled dose of oral Lopressor. However the patient went back into rapid atrial fibrillation and required a bolus of diltiazem and initiation of diltiazem drip. Lopressor dose was titrated and she was weaned off the diltiazem drip. Serial troponin levels were obtained with her initial troponin being 2790 ng/L and peaking at 4074 before declining down to 3500. proBNP on admission was elevated 8893 pg/mL and peaked at 10,000 pg/mL for declining to 6800. BUN and creatinine were stable throughout her hospitalization. She did have some hypokalemia which was treated with oral supplementation. An echocardiogram was performed and demonstrated new global hypokinesis with an LVEF of 35% with grossly normal right ventricular size and function. She has mild biatrial enlargement and has evidence of a left to right shunt in the mid atrial septum. Aortic valve is sclerotic without stenosis or regurgitation. Patient has mitral annular calcification with mild mitral regurgitation. She has mild to moderate tricuspid regurgitation with estimated RVSP of 40 mm. When compared to her prior echocardiogram from 12/10/2020 with global hypokinesis is new. At that time her LVEF was 57% with mild concentric LVH with no wall motion abnormalities. The intra-atrial shunt had been seen on previous echocardiogram. With respect to her COVID-19 she was treated with remdesivir because she had a oxygen requirement she was placed on Decadron. Patient was empirically treated with Rocephin and doxycycline serial procalcitonin was ordered with the intention to discontinue antibiotics if her procalcitonin level remained within normal limits. Initial procalcitonin was less than 0.1. With respect to her diabetes she was placed on NPH for coverage of the Decadron was put on basal bolus insulin with Lantus and NovoLog. Glycohemoglobin A1c was tested and found to be elevated at 7.5%. On the first hospital day the patient had been ambivalent about whether she wanted to have a cardiac catheterization or not and after she had a discussion with her sons she opted to have a cardiac catheterization. Her sons were in agreement with this decision. The family's first choice was for her to go to [facility] as some her family lives in the [place] area and patient had a previous cardiac treatment at [facility]. However at [facility] and availability and accepted the patient to the service of Dr. Jay Boyd and the family was happy with this decision as they felt it was important to expedite her work-up and treatment of her coronary artery disease. Patient remained hemodynamically stable throughout her hospital course. She was transferred in serious but stable condition to [facility] to service of Dr. Jay Boyd. Home Meds and New Rx's Prescriptions: No Action naproxen sodium [Aleve] 220 mg tablet 220 mg PO BID PRN desonide 0.05 % Cream 1 applic TOPICAL BID amlodipine 2.5 mg Tablet 2.5 mg PO DAILY (DME) OneTouch Ultra Blue Test Strip Strip MISCELLANEOUS (DME) lancets [OneTouch UltraSoft Lancets] Mis MISCELLANEOUS (DME) blood-glucose meter [OneTouch UltraMini] Kit MISCELLANEOUS clobetasol 0.05 % Solution 1 applic TOPICAL BID (DME) pen needle, diabetic [TRUEplus Pen Needle] 31 gauge x 3/16 Needle MISCELLANEOUS latanoprost [Xalatan] 2.5 ML drops 1 drp Ophthalmic DAILY atorvastatin 40 MG tablet 40 mg PO DAILY Patient Comments: pt states dose is 20mg -MG 04/26/23 aspirin [Aspir-81] 81 MG tablet,delayed release (DR/EC) 81 mg PO DAILY nitroglycerin [Nitrostat] 0.4 MG tablet, sublingual 0.4 mg Sublingual ONCE brimonidine 15 ML drops 1 drp Ophthalmic BID metformin 500 MG tablet extended release 24hr 1,000 mg PO DAILY Levemir FlexTouch U100 Insulin 100 UNIT/1 ML insulin pen 60 u Sub-Q DAILY dorzolamide-timolol (PF) [Cosopt (PF)] 1 EACH dropperette 1 drp Ophthalmic BID multivitamin Tablet 1 tab PO DAILY mometasone 0.1 % solution 1 applic topical DAILY Nizoral A-D 1 % shampoo 1 applic topical Q3D clotrimazole 1 % cream 1 applic topical DAILY Rocklatan 0.02-0.005 % drops 1 drp ophthalmic (eye) DAILY lisinopril 40 mg tablet 20 mg PO DAILY Discharge Instructions Instructions: Acute Coronary Syndrome (DC), COVID-19 (Coronavirus Disease 2019) (DC) Activity:: Activity as Tolerated Equipment/Supplies:: No Equipment Needed Diet:: Carb Counting DS: Summary Time Spent with Patient providing and/or coordinating discharge services: Greater than 30 minutes Specific discharge activities: Interview/exam of patient, educating patient and/or family about need for transfer and alternative treatment options, coordination of transfer w/ receiving facility and discussion of case w/ accepting provider(s), completion of transfer orders and discharge summary Status at Discharge Functional status at discharge: independent ambulation Overall status at discharge: patient is progressing back to baseline Mental Status: mental status grossly normal Speech and Movement: speech and movement normal Mood: congruent mood Affect: normal affect Quality: AMI Clinical Trial Participant: No Exam Narrative Exam Narrative: Elderly white female sitting up in her chair visiting with her sons. No acute distress. Lungs are clear anteriorly. She has some bibasilar rales no wheezing Heart is regular rate and rhythm rate is better controlled 90s to low 100s. Abdomen soft nontender nondistended Extremities without peripheral cyanosis or edema Murcia catheter is draining clear yellow urine w/ a few mucous strands Psych Mental Status: mental status grossly normal Speech and Movement: speech and movement normal Mood: congruent mood Affect: normal affect DS: Data Vitals/I&O Vitals and I&O: Vital Signs Temperature 36.3 C L 04/28/23 16:15 Temperature Source Temporal Artery Scan 04/28/23 16:15 Pulse 114 H 04/28/23 19:51 Pulse 106 H 04/28/23 19:02 Respiratory Rate 21 04/28/23 19:02 Respiratory Effort Normal, Non-Labored 04/28/23 15:42 Respiratory Depth Normal 04/28/23 15:42 Respiratory Pattern Normal 04/28/23 15:42 Blood Pressure 113/83 04/28/23 19:02 Blood Pressure Mean 91 04/28/23 19:02 Blood Pressure Position Sitting 04/28/23 13:43 Pulse Oximetry 97 04/28/23 17:56 Oxygen Delivery Method Room Air 04/28/23 16:15 Oxygen Flow Rate 0 04/28/23 16:15 Pain Level 0 04/28/23 15:42 Intake & Output 04/27/23 04/28/23 04/28/23 23:59 11:59 23:59 Intake Total 1246.083 / 1583.083 560 / 900 340 / 900 Output Total 1700 / 3250 850 / 1150 300 / 1150 Balance -453.917 / -1666.917 -290 / -250 40 / -250 Weight 79.9 kg Intake: IV 246.083 / 343.083 320 / 420 100 / 420 Oral 1000 / 1240 240 / 480 240 / 480 Output: Urine 1700 / 3250 850 / 1150 300 / 1150 Other: Urine Color Yellow Pale Yellow Urine Appearance Clear Clear Clear Urine Odor None Comment murcia is patent Patient has a murcia catheter in place putting out sufficient amount of clear yellow urine. Murcia patient and draining clear yellow urine. Stool Size Small Small Moderate Stool Characteristics Hard Formed Soft Voiding Methods Indwelling Catheter Indwelling Catheter Data Completed and Pending Labs on day of discharge: Labs from last 24 hours 04/28/23 04/28/23 04/28/23 12:00 10:14 07:40 WBC RBC Hgb Hct MCV MCH MCHC RDW Plt Count MPV Immature Gran % Neutrophils % Lymphocytes % Monocytes % Eosinophils % Basophils % Nucleated RBC % Absolute Neutrophils Absolute Lymphocytes Absolute Monocytes Absolute Eosinophils Absolute Basophils APTT 71.2 H D-Dimer 536 H Sodium Potassium Chloride Carbon Dioxide Anion Gap BUN Creatinine Est GFR (CKD-EPI 2020) Glucose Hemoglobin A1c Calcium Magnesium Ferritin Total Bilirubin AST ALT Alkaline Phosphatase Lactate Dehydrogenase C-Reactive Protein NT-Pro-B Natriuret Pep Total Protein Albumin 25-OH Vitamin D Total Vit D 1,25-Dihydroxy Procalcitonin Urine Color Yellow Urine Clarity Clear Urine pH 5.0 Ur Specific Hillister 1.010 Urine Protein Trace H Urine Ketones Negative Urine Blood Trace-lysed H Urine Nitrite Negative Urine Bilirubin Negative Urine Urobilinogen 0.2 Ur Leukocyte Esterase Small H Urine RBC 0-2 Urine WBC 3-5 Ur Epithelial Cells Few Urine Crystals Few Amorphous Urine Bacteria Few Urine Casts 0-2 Hyaline Urine Mucus Negative Ur Culture Indicated? C&S Done As Ordered Urine Glucose Negative Urine Legionella Ag Pending Ur Strep pneumoniae Ag Pending Add-On Test Request Cancelled 04/28/23 04/28/23 04/27/23 06:30 06:20 22:00 WBC 18.86 H RBC 4.22 Hgb 12.9 Hct 39.2 MCV 93 MCH 30.6 MCHC 32.9 RDW 12.6 Plt Count 216 MPV 11.0 Immature Gran % 0.5 Neutrophils % 89.4 Lymphocytes % 5.7 Monocytes % 4.2 Eosinophils % 0.0 Basophils % 0.2 Nucleated RBC % 0.0 Absolute Neutrophils 16.86 H Absolute Lymphocytes 1.08 L Absolute Monocytes 0.79 Absolute Eosinophils 0.00 Absolute Basophils 0.04 APTT Cancelled D-Dimer Cancelled Sodium 136 Potassium 3.4 L Chloride 98 Carbon Dioxide 29.8 Anion Gap 8.2 BUN 32 H Creatinine 1.0 Est GFR (CKD-EPI 2020) 54.53 Glucose 193 H 438 H Hemoglobin A1c 7.5 H Calcium 9.2 Magnesium 2.1 Ferritin 466 H Total Bilirubin 0.6 AST 20 ALT 20 Alkaline Phosphatase 90 Lactate Dehydrogenase 238 H C-Reactive Protein 9.89 H NT-Pro-B Natriuret Pep 6813 H Total Protein 6.3 L Albumin 3.0 L 25-OH Vitamin D Total 58.1 Vit D 1,25-Dihydroxy Pending Procalcitonin < 0.1 Urine Color Urine Clarity Urine pH Ur Specific Hillister Urine Protein Urine Ketones Urine Blood Urine Nitrite Urine Bilirubin Urine Urobilinogen Ur Leukocyte Esterase Urine RBC Urine WBC Ur Epithelial Cells Urine Crystals Urine Bacteria Urine Casts Urine Mucus Ur Culture Indicated? Urine Glucose Urine Legionella Ag Ur Strep pneumoniae Ag Add-On Test Request DONE 04/27/23 04/27/23 20:15 15:07 WBC RBC Hgb Hct MCV MCH MCHC RDW Plt Count MPV Immature Gran % Neutrophils % Lymphocytes % Monocytes % Eosinophils % Basophils % Nucleated RBC % Absolute Neutrophils Absolute Lymphocytes Absolute Monocytes Absolute Eosinophils Absolute Basophils APTT 60.4 H Cancelled D-Dimer Sodium Potassium Chloride Carbon Dioxide Anion Gap BUN Creatinine Est GFR (CKD-EPI 2020) Glucose Hemoglobin A1c Calcium Magnesium Ferritin Total Bilirubin AST ALT Alkaline Phosphatase Lactate Dehydrogenase C-Reactive Protein NT-Pro-B Natriuret Pep Total Protein Albumin 25-OH Vitamin D Total Vit D 1,25-Dihydroxy Procalcitonin Urine Color Urine Clarity Urine pH Ur Specific Hillister Urine Protein Urine Ketones Urine Blood Urine Nitrite Urine Bilirubin Urine Urobilinogen Ur Leukocyte Esterase Urine RBC Urine WBC Ur Epithelial Cells Urine Crystals Urine Bacteria Urine Casts Urine Mucus Ur Culture Indicated? Urine Glucose Urine Legionella Ag Ur Strep pneumoniae Ag Add-On Test Request 04/28/23 12:00 Urine - Cath Murcia Indwelling Urine Culture - Pending 04/28/23 11:05 Blood Blood Culture - Pending 04/28/23 10:55 Blood Blood Culture - Pending Preliminary micro results at discharge 04/28/23 12:00 Urine Culture - Pending Urine - Cath Murcia Indwelling 04/28/23 11:05 Blood Culture - Pending Blood 04/28/23 10:55 Blood Culture - Pending Blood [facility] All Active Problems Hypomagnesemia (Acute) Respiratory failure (Acute) Acute COVID-19 (Acute) NSTEMI (non-ST elevated myocardial infarction) (Acute) CHF (congestive heart failure) (Chronic) Atrial fibrillation with rapid ventricular response (Acute) Colonic polyp (Acute) Hip pain, left (Acute) Risk for falls (Acute) Weakness (Acute) Tiredness (Acute) Paresthesia (Acute) Constipation (Acute) Actinic keratosis (Acute) Low back pain (Acute) Sciatica (Acute) Urinary incontinence (Acute) Medical History Screening mammogram, encounter for Preventative health care Urinary incontinence, mixed Chronic low back pain Hyperplastic colonic polyp Basal cell carcinoma Glaucoma Psoriasis Obesity Pain of left hip joint Overactive bladder Osteopenia Depression Memory impairment Mitral regurgitation HTN (hypertension) HLD (hyperlipidemia) CAD (coronary artery disease) Diabetes mellitus Dysuria Social History Smoking/Tobacco Use Status: Never Smoking risk assessment performed?: Yes Alcohol Intake: never Drug use: Never Substance use type: does not use Household members: children Housing: house Number of Children: 3 current occupation: Retired What type of physical activity do you participate in: independent ambulation Do you feel safe at home: Yes Do you feel safe in your relationship?: Yes Time Spent with Patient Time Spent with Patient: 45-69 minutes Time was spent: preparing to see the patient(eg.review tests), ordering medications,tests, procedures, referring, communicating with other health personal care service provider (calls to [facility] and [facility]), indepentently interpreting results, counseling the patient (discussions w/ both brothers and a nephew) and care coordination
--- NOTE | 2023-04-28 20:00 | RT.EKG_ITS ---
APPROVED REPORT Exam: Resting ECG Reason for Exam: FL Patient Location: I HR:118 bpm ECG Measurements Heart Rate 118 AXIS WA [id number] P [id number] QRSd 97 QRS -26 QT 341 T 175 QTc 478 Conclusion Atrial fibrillation...V-rate 68-138, irreg A-activity Abnormal R-wave progression, early transition...QRS area>0 in V2 Probable LVH with secondary repol abnrm...multiple LVH criteria
[2023-04-28] MEDS: Heparin in 0.45% NaCl 25,000 UNIT/250 ML BAG 10 UNIT IV (20:41)
[2023-04-28] MEDS: Latanoprost 0.005% 2.5 ML BTL OU (20:55)
[2023-04-28] MEDS: Insulin Glargine 300 UNITS/3 ML PEN 15 UNITS SC (21:01)
[2023-04-29 22:36] LABS: Legionella Ag Detection Urine Negative (Negative)
[2023-05-02 13:18] LABS: Streptococcus Pneumoniae Ag, U Negative (Negative)
[2023-05-02 15:43] LABS: 1,25-Dihydroxyvitamin D 55 pg/mL (18-78)
== END 2023-04-28 23:29 | disposition short-term general hospital (02) | DRG 280 ==
LOC: ER 04-27 01:08 → ICU 04-27 01:45
PROVIDERS: Internal Medicine; Admitting Provider Family Medicine; Emergency Provider Student in an Organized Health Care Education/Training Program; PCP Family Medicine; Visit Provider Family Medicine
DX: I48.91 Unspecified atrial fibrillation (principal); I21.4 Non-ST elevation (NSTEMI) myocardial infarction; I50.41 Acute combined systolic (congestive) and diastolic (congestive) heart failure; J96.00 Acute respiratory failure, unspecified whether with hypoxia or hypercapnia; U07.1 COVID-19; E83.42 Hypomagnesemia; L40.9 Psoriasis, unspecified; I25.10 Atherosclerotic heart disease of native coronary artery without angina pectoris; E11.9 Type 2 diabetes mellitus without complications; Z79.4 Long term (current) use of insulin; Z95.5 Presence of coronary angioplasty implant and graft; Z91.81 History of falling; R53.1 Weakness; K59.00 Constipation, unspecified; M54.40 Lumbago with sciatica, unspecified side; R32 Unspecified urinary incontinence; R20.2 Paresthesia of skin; I11.0 Hypertensive heart disease with heart failure; E78.5 Hyperlipidemia, unspecified; I34.0 Nonrheumatic mitral (valve) insufficiency; F32.A Depression, unspecified; M85.80 Other specified disorders of bone density and structure, unspecified site; G89.29 Other chronic pain; H40.9 Unspecified glaucoma; E66.9 Obesity, unspecified; N32.81 Overactive bladder; Z79.82 Long term (current) use of aspirin; Z68.30 Body mass index [BMI] 30.0-30.9, adult
CPT/HCPCS: 00123; 36410; 36415; 71275; 80053; 82306; 82947; 84145; 85027; 87040; 87077; 87449; 87637; 93005; 93306; 96365; 96366; 96368; 96375; 99291; 71045; 81003; 81015; 82652; 82728; 83036; 83615; 83735; 83880; 84484; 85025; 85379; 85610; 85730; 86140; 87086; 87186; 87899; 93010; 99223; 99239; J0248; J1940; J3490; J8540

== ENCOUNTER 2023-05-19 11:01 | Emergency (ER) | payer MEDICARE, SELFPAY ==
[2023-05-19] VITALS (95 sets, daily range): BP systolic 80–122; BP diastolic 54–97; PULSE 66–145; RESP 14–29; TEMP 36.7; O2SAT 73–100
--- NOTE | 2023-05-19 10:45 | RT.EKG_ITS ---
APPROVED REPORT Exam: Resting ECG Reason for Exam: Chest pain Patient Location: E HR:120 bpm ECG Measurements Heart Rate 120 AX[address] MA [id number] P [id number] QRSd 97 QRS 11 QT 331 T 253 QTc 468 Conclusion Atrial fibrillation...V-rate 76-146, irreg A-activity Repol abnrm suggests ischemia, anterolateral...ST dep, T neg, I aVL V2-V6 afib rvr, t wave inversions and st depressions inferior lateral leads
--- NOTE | 2023-05-19 11:00 | DI.CT_ITS ---
Exam(s) CT CHEST PE CTA EXAM: CT CHEST PE CTA CLINICAL HISTORY: chest pain sob, recent covid. TECHNIQUE: Imaging Protocol: CT angiography of the chest was performed using pulmonary embolus sunshine col. Multi planar reconstructions were performed. CONTRAST MATERIAL: Intravenous: Omnipaque 350 Contrast volume: 100 cc COMPARISON: CT CT CHEST PE CTA from 04/26/2023 FINDINGS: CHEST: PULMONARY ARTERIES: There are no intraluminal filling defects to suggest acute pulmonary emboli. LUNGS: Previously present small bilateral pleural effusions have resolved.. There are no confluent i nfiltrates and no ground-glass infiltrates on today's study. A few small benign-appearing pleural ba sed densities in the right upper lobe are noted, as is a small unchanged 2-3 millimeter nodule in the posterior aspect of the right upper lobe, unchanged. Another similar size subpleural nodule measuri ng 2 millimeters in the lateral aspect of the right upper lobe. MEDIASTINUM: There is no hilar nor mediastinal adenopathy. Visualized thyroid unremarkable. CARDIAC: Mild cardiomegaly. No pericardial effusion.Caliber of the thoracic aorta is within normal l imits. Moderate coronary artery calcification noted. There is possible stent in the left coronary ar goldie. There is no significant shift of the interventricular septum. PARTIALLY VISUALIZED UPPERMOST ABDOMEN: No obvious findings OSSEOUS: No significant osseous lesions.. IMPRESSION: 1. Compared to prior CT scan of 04/26/2023 the small bilateral pleural effusions have resolved. Ther e are no infiltrates nor pleural effusions on the present study..There are S few small bilateral gabino gn-appearing nodular densities again noted with average size 2-3 mm. These have benign appearance. No associated intrathoracic adenopathy 2. Cardiomegaly. No pericardial effusion. Possible left coronary artery stent. 3. No evidence of acute pulmonary emboli. RADIATION DOSE DELIVERED: Total DLP DATA REPOSITORY: All CT scans at this facility are submitted to the National Radiology Data Registry (NRDR) Dose Index Registry (DIR) with the [employer] (ACR). RADIATION OPTIMIZATION: All CT scans at this facility use at least one of these dose optimization te chniques: automated exposure control; mA and/or kV adjustment per patient size (includes targeted exa ms where dose is matched to clinical indication); or iterative reconstruction.
--- NOTE | 2023-05-19 11:19 | W.ED.GENAD ---
Discharge Plan Disposition Patient Disposition: Transfer-Acute Inpatient Care Specific Acute Inpt Facility: [facility] Condition: Stable Discharge Details Chief Complaint: SOB Clinical Impression: Non-ST elevation [place] (NSTEMI), Atrial fibrillation with RVR Primary Care Provider: Ruth Ho ED Provider: Elvis Cordero Home Meds and New Rx's Prescriptions: No Action desonide 0.05 % Cream 1 applic TOPICAL BID (DME) OneTouch Ultra Blue Test Strip Strip MISCELLANEOUS (DME) lancets [OneTouch UltraSoft Lancets] Misc MISCELLANEOUS (DME) blood-glucose meter [ZentyalTouch UltraMini] Kit MISCELLANEOUS clobetasol 0.05 % Solution 1 applic TOPICAL BID (DME) pen needle, diabetic [TRUEplus Pen Needle] 31 gauge x 3/16 Needle MISCELLANEOUS latanoprost [Xalatan] 2.5 ML drops 1 drp Ophthalmic DAILY atorvastatin 40 MG tablet 40 mg PO DAILY Patient Comments: pt states dose is 20mg -MG 04/26/23 nitroglycerin [Nitrostat] 0.4 MG tablet, sublingual 0.4 mg Sublingual ONCE brimonidine 15 ML drops 1 drp Ophthalmic BID metformin 500 MG tablet extended release 24hr 1,000 mg PO DAILY Levemir FlexTouch U100 Insulin 100 UNIT/1 ML insulin pen 60 u Sub-Q DAILY dorzolamide-timolol (PF) [Cosopt (PF)] 1 EACH dropperette 1 drp Ophthalmic BID multivitamin Tablet 1 tab PO DAILY mometasone 0.1 % solution 1 applic topical DAILY Nizoral A-D 1 % shampoo 1 applic topical Q3D clotrimazole 1 % cream 1 applic topical DAILY Rocklatan 0.02-0.005 % drops 1 drp ophthalmic (eye) DAILY apixaban 5 mg tablet 5 mg PO BID clopidogrel 75 mg tablet 75 mg PO DAILY Patient Comments: 05/02/23 per [facility] [place] october d/c after 6 MONTHs RH losartan 100 mg tablet 100 mg PO DAILY metoprolol succinate 100 mg tablet extended release 24 hr 100 mg PO DAILY spironolactone 25 mg tablet 25 mg PO DAILY Medical Decision Making 88-year-old female history of A-fib, recent COVID, coronary disease with stents presents with shortness of breath and chest pain earlier this morning that resolved nonexertional. Noted to be in A-fib RVR with inferior lateral ST depressions and T wave inversions. Normoxic normotensive afebrile. Must consider PE versus symptomatic A-fib in the setting of med noncompliance versus ACS versus electrolyte derangement versus viral illness lower suspicion for pneumonia or aortic pathology. Screening labs imaging light fluids if patient did not take her medication today will administer her p.o. metoprolol otherwise consider intravenous rate control agent such as diltiazem. Stat CTA chest close reassessment 11: 38 upon review of patient's discharge information from [facility] it appears that she was being treated for possible myocarditis related to COVID given her reduced ejection fraction and new A-fib RVR. Patient has not been taking her medication at home. Did have some slight diarrhea as well. 14: 37 discussed case with [facility] cardiology team, suspicion is that patient's elevated troponin and BNP are likely related to demand from A-fib RVR lower suspicion for persistent COVID myocarditis or acute ischemia, will continue to trend troponins if relatively stable or downtrending patient can be admitted here for further observation and evaluation if troponin uptrending by large margin and patient amenable to catheterization will reconsider transfer to [facility] for further intervention. Holding heparin at this time given likely type II NSTEMI in the setting of A-fib RVR. 15: 41 patient chest pain-free blood pressure improving and heart rate stabilizing in the low 100s to 110s; we will continue to trend troponins if plateauing/decreasing patient be admitted here for continued light fluid hydration observation, if troponin continues to elevate patient is considering the possibility of cardiac catheterization currently discussing treatment options with her family. 18: 09 given uptrending troponin and intermittent active chest pain cardiology team at [facility] has accepted patient for transfer patient family amenable to catheterization if needed. Started on heparin ACS protocol as well as high intensity statin. Patient's last anticoagulation dose was given over 24 hours ago. Holding now given potential for catheterization. Patient hemodynamically stable and amenable to transfer. Accepting physician Dr. Jeffrey REYNOLDS General Date/Time Provider Initiated Documentation: 05/19/23 11:02. HPI Narrative: 88-year-old female history of recent COVID, coronary disease, stenting, presents with shortness of breath and chest pain. Now resolved. Nonexertional in nature. No acute distress no complaints currently. Giiven aspirin in field. Related Data Home Medications Medication Instructions Recorded Confirmed atorvastatin 40 mg tablet 40 mg PO DAILY 03/15/17 05/19/23 brimonidine 0.15 % eye drops 1 drp ophthalmic (eye) BID 03/15/17 05/19/23 dorzolamide-timolol (PF) 2 %-0.5 % 1 drp ophthalmic (eye) BID 03/15/17 05/19/23 eye drops in a dropperette (Cosopt (PF)) insulin detemir U-100 100 unit/mL 60 u subcut DAILY 03/15/17 05/19/23 (3 mL) subcutaneous pen (Levemir FlexTouch U-100 Insulin) latanoprost 0.005 % eye drops 1 drp ophthalmic (eye) DAILY 03/15/17 05/19/23 (Xalatan) metformin 500 mg tablet,extended 1,000 mg PO DAILY 03/15/17 05/19/23 release 24hr nitroglycerin 0.4 mg sublingual 0.4 mg sublingual ONCE 03/15/17 05/19/23 tablet (Nitrostat) blood sugar diagnostic (Zentyaluch 02/13/20 04/26/23 Ultra Blue Test Strip) blood-glucose meter (OneTouch 02/13/20 04/26/23 UltraMini kit) clobetasol 0.05 % scalp solution 1 applic topical BID 02/13/20 05/19/23 desonide 0.05 % topical cream 1 applic topical BID 02/13/20 05/19/23 lancets (ZentyalTouch UltraSoft 02/13/20 04/26/23 Lancets) pen needle, diabetic 31 gauge x 02/13/20 04/26/23 3/16 (TRUEplus Pen Needle) clotrimazole 1 % topical cream 1 applic topical DAILY 08/22/22 05/19/23 ketoconazole 1 % shampoo (Nizoral 1 applic topical Q3D 08/22/22 05/19/23 A-D) mometasone 0.1 % topical solution 1 applic topical DAILY 08/22/22 05/19/23 multivitamin 1 tab PO DAILY 08/22/22 05/19/23 netarsudil 0.02 %-latanoprost 1 drp ophthalmic (eye) DAILY 08/22/22 05/19/23 0.005 % eye drops (Rockmttan) apixaban 5 mg tablet 5 mg PO BID 05/02/23 05/19/23 clopidogrel 75 mg tablet 75 mg PO DAILY 05/02/23 05/19/23 losartan 100 mg tablet 100 mg PO DAILY 05/02/23 05/19/23 metoprolol succinate 100 mg 100 mg PO DAILY 05/02/23 05/19/23 tablet,extended release 24 hr spironolactone 25 mg tablet 25 mg PO DAILY 05/02/23 05/19/23 Allergies Allergy/AdvReac Type Severity Reaction Status Date / Time No Known Allergies Allergy Unverified 05/19/23 11:11 General Stated Complaint: SOB MARIA ANTONIA: 3 Review of Systems Narrative: Review of Systems Constitutional: negative Eyes: negative ENT: negative Cardiovascular: Chest pain Respiratory: Shortness of breath Gastrointestinal: negative : negative Musculoskeletal: negative Skin: negative Neurologic: negative Psych: negative PFSH All Active Problems (Updated 05/19/23 @ 18:16 by Elvis Cordero MD) Atrial fibrillation with RVR (Acute) Non-ST elevation [place] (NSTEMI) (Acute) Acute COVID-19 (Acute) NSTEMI (non-ST elevated myocardial infarction) (Acute) CHF (congestive heart failure) (Chronic) Atrial fibrillation with rapid ventricular response (Acute) Colonic polyp (Acute) Hip pain, left (Acute) Risk for falls (Acute) Weakness (Acute) Tiredness (Acute) Paresthesia (Acute) Constipation (Acute) Actinic keratosis (Acute) Low back pain (Acute) Sciatica (Acute) Urinary incontinence (Acute) Medical History (Updated 05/19/23 @ 18:16 by Elvis Cordero MD) Screening mammogram, encounter for Preventative health care Urinary incontinence, mixed Chronic low back pain Hyperplastic colonic polyp Basal cell carcinoma Glaucoma Psoriasis Obesity Pain of left hip joint Overactive bladder Osteopenia Depression Memory impairment Mitral regurgitation HTN (hypertension) HLD (hyperlipidemia) CAD (coronary artery disease) Diabetes mellitus Dysuria Social History Smoking/Tobacco Use Status: Never Smoking risk assessment performed?: Yes Alcohol Intake: never Drug use: Never Substance use type: does not use Household members: children Housing: house Number of Children: 3 current occupation: Retired What type of physical activity do you participate in: independent ambulation Do you feel safe at home: Yes Do you feel safe in your relationship?: Yes Exam Narrative Exam Narrative: Physical Examination General: alert, awake, cooperative, resting comfortably, no acute distress HEENT: normocephalic, atraumatic; PERRL, EOM intact, conjunctiva normal; no nasal discharge; moist mucous membranes, oral and pharyngeal mucosa normal, tolerating secretions Neck: supple, trachea midline; full ROM Chest: normal to inspection Respiratory: normal respiratory effort, speaking in full sentences, clear to auscultation, no wheezing, rales or rhonchi Cardiac: Tachycardia, irregularly irregular, S1S2 intact, no murmurs rubs or gallops GI: abdomen soft, non-tender, non-distended; no palpable mass or hepatosplenomegaly Skin: no lesions, rashes or trauma appreciated Neuro: AAOx3, normal speech, moving all extremities Extremities: No peripheral edema Psych: Appropriate mood and affect Course Vital Signs Vital signs: Vital Signs Temperature 36.7 C 05/19/23 11:01 Pulse 115 H 05/19/23 11:01 Respiratory Rate 18 05/19/23 11:01 Blood Pressure 102/75 05/19/23 11:01 Pulse Oximetry 97 05/19/23 11:01 Temperature 36.7 C 05/19/23 11:01 Temperature Source Skin 05/19/23 11:01 Pulse 115 H 05/19/23 11:01 Respiratory Rate 18 05/19/23 11:01 Blood Pressure 102/75 05/19/23 11:01 Blood Pressure Position Sitting 05/19/23 11:01 Pulse Oximetry 97 05/19/23 11:01 Oxygen Delivery Method Room Air 05/19/23 11:01 Oxygen Flow Rate 0 05/19/23 11:01 Pain Level 0 05/19/23 11:01
[2023-05-19] MEDS: Normal Saline 500 ML 1000 ML IV ×2 (11:21→14:55)
[2023-05-19 11:25] LABS: Abs Immature Grans 0.03 10^3/uL (0.0-0.06); Absolute Basophil Count 0.03 10^3/uL (0.0-0.2); Absolute Eosinophil Count 0.04 10^3/uL (0.0-0.7); Absolute Monocyte Count 0.58 10^3/uL (0.1-0.8); Basophils % 0.3; Eosinophils % 0.4; HCT 42.6 % (36.0-46.0); HGB 13.6 g/dL (11.2-15.7); Immature Grans % 0.3; Lymphocytes % 12.5; MCH 30.8 pg (27.0-33.0); MCHC 31.9 % (32.0-36.0); MCV 97 fL (80-95); MPV 10.6 fL (8.0-11.0); Monocytes % 5.2; Neutrophils % 81.3; Platelet Count 208 10^3/uL (130-400); RBC 4.41 10^6/uL (3.93-5.22); RDW 13.4 % (11.7-14.6); RDW-SD 47.9 fL
[2023-05-19 11:30] LABS: Absolute Neutrophil Count 9.11 10^3/uL (1.2-6.7)
[2023-05-19 11:38] LABS: INR 1.1 (0.9-1.1); PTT Activated 23.2 sec (23.6-32.8); Prothrombin Time 11.4 sec (9.1-11.1)
[2023-05-19] MEDS: Metoprolol 50 MG TAB 100 MG PO (11:47)
[2023-05-19 12:02] LABS: ALT 17 U/L (14-59); AST 40 U/L (15-37); Albumin 3.3 g/dL (3.4-5.0); Alkaline Phosphatase 79 U/L (46-116); Anion Gap 6.2 mmol/L (3-11); BUN 18 mg/dL (7-18); Bilirubin, Total 0.9 mg/dL (0.2-1.0); CO2 28.8 mmol/L (21.0-32.0); CREATININE 1.1 mg/dL (0.55-1.02); Calcium 9.3 mg/dL (8.5-10.1); Chloride 103 mmol/L (98-107); Estimated GFR 48.63 (mL/min/1.73m2); Glucose 113 mg/dL (74-106); Magnesium 1.7 mg/dL (1.8-2.4); NT-proBNP 10326 pg/mL (<300); Potassium 4.3 mmol/L (3.5-5.1); Sodium 138 mmol/L (136-145); TSH (W/Ref FT4) 3.28 uIU/mL (0.36-3.74); Total Protein 6.6 g/dL (6.4-8.2)
[2023-05-19 12:05] LABS: Troponin I 4702 ng/L (<or=60)
[2023-05-19] MEDS: Normal Saline - Diluent 50 ML VIAL IJ (12:27)
[2023-05-19] MEDS: Omnipaque 350 MG/ML 100 ML BTL IJ (12:28)
[2023-05-19 14:45] LABS: Troponin I 5733 ng/L (<or=60)
--- NOTE | 2023-05-19 17:15 | RT.EKG_ITS ---
APPROVED REPORT Exam: Resting ECG Reason for Exam: chest pain Patient Location: E HR:118 bpm ECG Measurements Heart Rate 118 AXIS PA [id number] P [id number] QRSd 96 QRS -10 QT 336 T 218 QTc 471 Conclusion Atrial fibrillation...V-rate 71-139, irreg A-activity Repol abnrm suggests ischemia, diffuse leads...ST-T neg, ant/lat/inf afib rvr, inferior lateral t wave inversions and st depressions
[2023-05-19 17:16] LABS: Bilirubin Negative (Negative); Blood Trace-intact (Negative); Clarity Clear (Clear); Glucose Negative (Negative); Ketones 40 mg/dL (Negative); Leukocyte Esterase Negative (Negative); Nitrite Negative (Negative); Specific Gravity <= 1.005 (1.005-1.025); Urobilinogen 0.2 mg/dL (Up to 0.2)
[2023-05-19 17:19] LABS: Troponin I 6472 ng/L (<or=60)
[2023-05-19 17:25] LABS: Bacteria Negative HPF (Negative); C & S Indicated? No; Casts Negative LPF (Negative); Crystals Negative HPF (Negative); Epithelial Cells Negative HPF (Negative); Mucus Negative (Negative); RBC 0-2 HPF (0-2); WBC Negative HPF (0-5)
[2023-05-19] MEDS: Atorvastatin 40 MG TAB 80 MG PO (18:07)
[2023-05-19] MEDS: Heparin in 0.45% NaCl 25,000 UNIT/250 ML BAG 9.6 UNIT IV (18:07)
== END 2023-05-19 22:39 | disposition short-term general hospital (02) ==
PROVIDERS: Emergency Provider Emergency Medicine; PCP Family Medicine
DX: I21.4 Non-ST elevation (NSTEMI) myocardial infarction (principal); I48.91 Unspecified atrial fibrillation; I11.0 Hypertensive heart disease with heart failure; I50.9 Heart failure, unspecified; I25.10 Atherosclerotic heart disease of native coronary artery without angina pectoris; I51.7 Cardiomegaly; J90 Pleural effusion, not elsewhere classified; Z95.5 Presence of coronary angioplasty implant and graft; Z79.4 Long term (current) use of insulin; Z79.01 Long term (current) use of anticoagulants; Z79.02 Long term (current) use of antithrombotics/antiplatelets; Z91.148 Patient's other noncompliance with medication regimen for other reason
CPT/HCPCS: 36415; 71275; 80053; 93005; 99285; 81003; 81015; 83735; 83880; 84443; 84484; 85025; 85610; 85730; 93010; J3490

== ENCOUNTER 2023-05-29 08:18 | Outpatient (CLI) | payer MEDICARE, SELFPAY ==
--- NOTE | 2023-05-29 08:15 | RT.EKG_ITS ---
APPROVED REPORT Exam: Resting ECG Reason for Exam: afib Patient Location: O HR:131 bpm ECG Measurements Heart Rate 131 AXIS NM [id number] P [id number] QRSd 91 QRS -30 QT 308 T 162 QTc 455 Conclusion Atrial fibrillation...V-rate 100-165, irreg A-activity Ventricular premature complex...V complex w/ short R-R interval Left axis deviation...QRS axis (-30,-90) Abnormal R-wave progression, early transition...QRS area>0 in V2 Repolarization abnormality, prob rate related...ST dep, T neg, tachycardia
== END 2023-05-29 08:19 | disposition home or self-care (01) ==
LOC: DI.CARD 08:19
PROVIDERS: PCP Family Medicine; Visit Provider Internal Medicine Cardiovascular Disease
DX: I25.10 Atherosclerotic heart disease of native coronary artery without angina pectoris
CPT/HCPCS: 93010

== ENCOUNTER → 2023-05-29 13:43 | Outpatient (BNVA) | payer MEDICARE, SELFPAY | PROVIDERS: PCP Family Medicine; Referring Provider Family Medicine; Visit Provider Internal Medicine Cardiovascular Disease | DX: I25.5 Ischemic cardiomyopathy (principal); I25.2 Old myocardial infarction; Z79.01 Long term (current) use of anticoagulants; I25.10 Atherosclerotic heart disease of native coronary artery without angina pectoris; I48.91 Unspecified atrial fibrillation | CPT/HCPCS: 93005; 99214 ==

== ENCOUNTER 2023-06-09 20:36 | Outpatient (REF) | payer MEDICARE, SELFPAY ==
[2023-06-09 19:59] LABS: HCT 44.4 % (36.0-46.0); MCH 30.8 pg (27.0-33.0); MCHC 31.5 % (32.0-36.0); MCV 98 fL (80-95); MPV 10.9 fL (8.0-11.0); Platelet Count 259 10^3/uL (130-400); RBC 4.55 10^6/uL (3.93-5.22); RDW 14.3 % (11.7-14.6); RDW-SD 51.8 fL
[2023-06-09 20:22] LABS: BUN 18 mg/dL (7-18); Calcium 9.2 mg/dL (8.5-10.1); Chloride 100 mmol/L (98-107); Estimated GFR 54.53 (mL/min/1.73m2); Glucose 247 mg/dL (74-106); NT-proBNP 11243 pg/mL (<300); Potassium 4.6 mmol/L (3.5-5.1); Sodium 138 mmol/L (136-145)
== END 2023-06-09 20:37 | disposition home or self-care (01) ==
LOC: NCHCN 20:36
PROVIDERS: PCP Family Medicine; Visit Provider Family Medicine
DX: I48.91 Unspecified atrial fibrillation (principal)
CPT/HCPCS: 80048; 85027; 83880

== ENCOUNTER → 2023-06-27 14:11 | Outpatient (BNVA) | payer MEDICARE, SELFPAY | PROVIDERS: PCP Family Medicine; Referring Provider Family Medicine; Visit Provider Internal Medicine Interventional Cardiology | DX: I48.19 Other persistent atrial fibrillation (principal); I25.5 Ischemic cardiomyopathy; I25.10 Atherosclerotic heart disease of native coronary artery without angina pectoris; E11.9 Type 2 diabetes mellitus without complications; Z79.4 Long term (current) use of insulin | CPT/HCPCS: 99213 ==

== ENCOUNTER → 2023-08-14 10:55 | Outpatient (BNVA) | payer MEDICARE, SELFPAY | PROVIDERS: PCP Family Medicine; Visit Provider Internal Medicine Cardiovascular Disease | DX: I25.5 Ischemic cardiomyopathy (principal); I48.19 Other persistent atrial fibrillation; I25.10 Atherosclerotic heart disease of native coronary artery without angina pectoris | CPT/HCPCS: 99213 ==

== ENCOUNTER → 2023-09-12 03:02 | Outpatient (CLI) | payer MEDICARE, SELFPAY ==
--- NOTE | 2023-09-12 07:15 | DI.US_ITS ---
APPROVED REPORT EXAM: Comprehensive 2D, Doppler, and color-flow Echocardiogram Patient Location: Out-Patient Legislative Assistant: Eri Foster RDCS (AE) Indications: Check LV function, ischemic cardiomyopathy, A Fib, CAD Other Information Study Quality: Fair. Technically limited study due to body habitus, arrhythmia throughout exam. Conclusion Borderline dilated left ventricle. Wall thickness is normal. Ejection fraction is 35% with global h ypokinesis. Patient is in atrial fibrillation with variation [id number] Right ventricle is not well-visualized Both atria are moderately enlarged. There is an atrial septal defect with [id number] flow Trileaflet aortic valve with trace regurgitation Normal mitral valve. Mild mitral annular occasion. Mild mitral regurgitation Estimated right ventricular systolic pressure is 40 mmHg Wall motion Left Ventricle Left ventricle is mildly dilated. Left ventricular systolic function is moderately decreased. There i s normal left ventricular wall thickness. Arrhythmia creating beat to beat variation. Appears to be g lobally hypokinetic. There is no ventricular septal defect visualized. LVEF is 35%. Right Ventricle Right ventricle is not well visualized. Right ventricular systolic function could not be assessed. Atria Left atrium is moderately dilated. Right atrium is moderately dilated. There is Doppler evidence for an atrial septal defect. Tyla-ze-ahpsg flow Aortic Valve The aortic valve is normal in structure. Aortic valve is trileaflet. There is no aortic valvular sten osis. Trace aortic regurgitation. Mitral Valve The mitral valve is normal in structure. Mild mitral annular calcification No evidence of mitral valv e stenosis. Mild to moderate mitral regurgitation. Tricuspid Valve The tricuspid valve is normal in structure. There is no tricuspid valve stenosis. Mild tricuspid regu rgitation. The RVSP is 40.3 mmHg. Pulmonic Valve The pulmonary valve is normal in structure. There is no pulmonic valvular stenosis. Trace pulmonic re gurgitation. Great Vessels The aortic root is normal in size. The ascending aorta is borderline Aortic arch is not well visualiz ed. dilated. The IVC collapses <50% with inspiration. Pericardium There is no pericardial effusion. 2D Dimensions IVSD d PLAX 0.88 cm F: 0.6-1.0 Ao Root d 3.12 cm F: 2.7 - 3.3 LVPW d PLAX 0.94 cm F: 0.6 - 1.0 Ao Asc Diam d 3.29 cm F: 2.3 - 3.1 LVID d PLAX 5.45 cm F: 3.8 - 5.2 LVDs 4.46 cm F: 2.2 - 3.5 LV EF Teichholz 37.4 % FS 18.25 % LV EDV (Teich) 144.6 mL LV ESV (Teich) 90.4 mL M-Mode TAPSE 1.30 cm (M/F) >1.7 Auto EF LV EDV A4C 87.1 mL LV EDV A2C 120.0 mL LV EDV BP 102.9 mL LV ESV A4C 57.8 mL LV ESV A2C 80.4 mL LV ESV BP 67.8 mL LVEF(%) A4C 33.7 % LVEF(%) A2C 33.0 % LVEF(%) BP 34.1 % LV SV A4C 29.4 ml LV SV A2C 39.7 ml LV SV BP 35.1 ml LV CO A4C 2.8 L/min LV CO A2C 4.3 L/min LV CO BP 3.6 L/min HR A4C 95.50 BPM HR A2C 108.44 BPM LV EDV Index (BP) LA Volume LA Length A4C 4.7 cm LA Length A2C 5.2 cm LA Area A4C s 18.06 cm2 LA Area A2C s 18.81 cm2 LA Vol A4C A-L 59.11 mL LA Vol A2C A-L 57.48 mL LA Vol Biplane A-L 61.6 mL LA Vol/BSA A4C A-L LA Vol/BSA A2C A-L LA Vol/BSA BP A-L 33.6 mL/m2 LA Vol A4C MOD 56.0 mL LA Vol A2C MOD 56.8 mL LA Vol BP MOD 59.2 mL RA Volume RA Area A4C 21.4 cm2 RA ESV A4C (A-L) 71.2mL RA Vol/BSA A4C A-L RA Length A4C 5.4 cm RA ESV A4C (MOD) 67.5mL LV Diastology MV E' lateral 0.064 (>0.1 m/s) Aortic Valve AoV Vmax 0.95 m/s LVOT Vmax 0.79 m/s AoV Peak Grad 3.6 mmHg LVOT Peak Grad 2.5 mmHg AoV Area (Vmax) 2.48 cm2 LVOT VTI 0.138 m AoV VTI 0.196 m LVOT Mean Grad 1.3 mmHg AoV Mean Fernando. 0.69 m/s LVOT SV 41.13 mL AoV Mean Grad 2.1 mmHg LVOT Diam s 1.90 cm AoV Area (VTI) 2.10 cm2 Velocity Ratio 0.83 Mitral Valve MV Vmax TIPS 1.08 m/s MV Mean Grad 2.0 (<2mmHg) MV VTI 0.211 m Pulmonary Valve PV Vmax 0.55 (0.5-1.5 m/s) RVOT Vmax 0.45 m/s PV Peak Grad 1.2 mmHg RVOT Peak Gr. 0.8 mmHg PV Mean Fernando 0.43 m/s RVOT VTI 0.094 m PV Mean Grad 0.8 mmHg RVOT Mean Gr. 0.5 mmHg Tricuspid Valve RA Pressure 8.00 mmHg TR Vmax 2.84 m/s TV S' 0.11 m/s TR Peak Grad 32.3 mmHg RVSP (TR) 40.3 mmHg
== END ==
PROVIDERS: PCP Family Medicine; Visit Provider Internal Medicine Cardiovascular Disease
DX: I25.5 Ischemic cardiomyopathy (principal)
CPT/HCPCS: 93306

== ENCOUNTER 2023-09-18 13:20 | Outpatient (REF) | payer MEDICARE, SELFPAY ==
[2023-09-18 15:40] LABS: Anion Gap 7.1 mmol/L (3-11); BUN 15 mg/dL (7-18); CO2 32.9 mmol/L (21.0-32.0); CREATININE 0.9 mg/dL (0.55-1.02); Chloride 106 mmol/L (98-107); Estimated GFR 61.87 (mL/min/1.73m2); Glucose 165 mg/dL (74-106); NT-proBNP 10007 pg/mL (<300); Potassium 4.1 mmol/L (3.5-5.1); Sodium 146 mmol/L (136-145)
[2023-09-18 15:48] LABS: Hemoglobin A1C 7.1 % (<5.7)
== END 2023-09-18 13:21 | disposition home or self-care (01) ==
LOC: NCHCN 13:20
PROVIDERS: PCP Family Medicine; Visit Provider Family Medicine
DX: E11.9 Type 2 diabetes mellitus without complications (principal)
CPT/HCPCS: 80048; 83036; 83880; 84443

== ENCOUNTER 2023-09-19 18:12 | Outpatient (REF) | payer MEDICARE, SELFPAY ==
[2023-09-19 18:39] LABS: COMMENT (LAB VIEW ONLY) 114.65 mg/dL; Microalb ug/mg Crea 23.4 ug/mg Cr
== END 2023-09-19 18:13 | disposition home or self-care (01) ==
LOC: NCHCN 18:12
PROVIDERS: PCP Family Medicine; Visit Provider Family Medicine
DX: E11.9 Type 2 diabetes mellitus without complications (principal)
CPT/HCPCS: 82043; 82570

== ENCOUNTER → 2023-09-22 10:35 | Outpatient (BNVA) | payer MEDICARE, SELFPAY | PROVIDERS: PCP Family Medicine; Visit Provider Internal Medicine Cardiovascular Disease | DX: I48.19 Other persistent atrial fibrillation (principal); I25.5 Ischemic cardiomyopathy; I25.10 Atherosclerotic heart disease of native coronary artery without angina pectoris | CPT/HCPCS: 99213 ==

== ENCOUNTER → 2023-12-18 13:18 | Outpatient (BNVA) | payer MEDICARE, SELFPAY | PROVIDERS: PCP Family Medicine; Referring Provider Family Medicine; Visit Provider Internal Medicine Cardiovascular Disease | DX: I48.19 Other persistent atrial fibrillation (principal); I25.5 Ischemic cardiomyopathy; I25.10 Atherosclerotic heart disease of native coronary artery without angina pectoris | CPT/HCPCS: 99213 ==

== ENCOUNTER 2023-12-27 18:43 | Outpatient (REF) | payer MEDICARE, SELFPAY ==
[2023-12-27 18:32] LABS: Bacteria Many HPF (Negative); C & S Indicated? C&S Done As Ordered; Casts Negative LPF (Negative); Crystals Negative HPF (Negative); Epithelial Cells Rare HPF (Negative); Mucus Negative (Negative); RBC 0-2 HPF (0-2)
== END 2023-12-27 18:44 | disposition home or self-care (01) ==
LOC: NCHCN 18:43
PROVIDERS: PCP Family Medicine; Visit Provider Nurse Practitioner Family
DX: E11.9 Type 2 diabetes mellitus without complications (principal); R82.998 Other abnormal findings in urine; B96.29 Other Escherichia coli [E. coli] as the cause of diseases classified elsewhere; N39.0 Urinary tract infection, site not specified
CPT/HCPCS: 87077; 81015; 87086; 87186

== ENCOUNTER → 2024-02-22 11:03 | Outpatient (BNVA) | payer MEDICARE, SELFPAY | PROVIDERS: PCP Family Medicine; Referring Provider Family Medicine; Visit Provider Podiatrist | DX: E11.42 Type 2 diabetes mellitus with diabetic polyneuropathy; I87.2 Venous insufficiency (chronic) (peripheral); L60.2 Onychogryphosis; G62.9 Polyneuropathy, unspecified | CPT/HCPCS: 11719; 99213 ==

== ENCOUNTER 2024-03-13 14:32 | Outpatient (CLI) | payer MEDICARE, SELFPAY ==
[2024-03-13 14:40] LABS: Anion Gap 5.5 mmol/L (3-11); BUN 18 mg/dL (7-18); CO2 33.5 mmol/L (21.0-32.0); Chloride 101 mmol/L (98-107); Estimated GFR 54.19 (mL/min/1.73m2); Glucose 283 mg/dL (74-106); Potassium 4.5 mmol/L (3.5-5.1); Sodium 140 mmol/L (136-145)
== END 2024-03-13 14:33 | disposition home or self-care (01) ==
LOC: LBO 14:32
PROVIDERS: PCP Family Medicine; Visit Provider Family Medicine
DX: I50.9 Heart failure, unspecified (principal)
CPT/HCPCS: 36415; 80048

== ENCOUNTER 2024-04-17 10:43 | Outpatient (REF) | payer MEDICARE, SELFPAY | END 2024-04-17 10:44 | disposition home or self-care (01) | LOC: NCHCN 10:43 | PROVIDERS: PCP Family Medicine; Visit Provider Family Medicine | DX: R35.0 Frequency of micturition (principal); B96.1 Klebsiella pneumoniae [K. pneumoniae] as the cause of diseases classified elsewhere | CPT/HCPCS: 87077; 87086; 87186 ==

== ENCOUNTER → 2024-04-19 10:30 | Outpatient (BNVA) | payer MEDICARE, SELFPAY | PROVIDERS: PCP Family Medicine; Visit Provider Internal Medicine Cardiovascular Disease | DX: I48.19 Other persistent atrial fibrillation (principal); I25.10 Atherosclerotic heart disease of native coronary artery without angina pectoris; Z95.5 Presence of coronary angioplasty implant and graft; I25.5 Ischemic cardiomyopathy; Z79.01 Long term (current) use of anticoagulants | CPT/HCPCS: 99214 ==

== ENCOUNTER 2024-06-13 02:31 | Outpatient (CLI) | payer MEDICARE, SELFPAY ==
--- NOTE | 2024-06-13 12:30 | DI.US_ITS ---
APPROVED REPORT EXAM: Comprehensive 2D, Doppler, and color-flow Echocardiogram Patient Location: Out-Patient Plodding Machine Operator: Eri Foster RDCS (AE) Indications: Re check LV function, Ischemic cardiomyopathy Other Information Study Quality: Adequate Conclusion Mildly dilated left ventricle. Ejection fraction is 30 to 35%. There is global hypokinesis Normal right ventricular size and function Both atria are mildly dilated Aortic valve is mildly sclerotic and trileaflet without stenosis or regurgitation Mitral annular calcification. Moderate mitral regurgitation Estimated right ventricular systolic pressure is 32 mmHg Wall motion Left Ventricle Left ventricle is mildly dilated. Left ventricular systolic function is moderate to severely decrease d. There is normal left ventricular wall thickness. There is no ventricular septal defect visualized. LVEF is 35%. Right Ventricle Right ventricle is grossly normal in size. Right ventricular systolic function is grossly normal. Atria Left atrium is mildly dilated. Right atrium is mildly dilated. Doppler suggests right to left interat rial shunt. Aortic Valve The Aortic valve is mildly sclerotic. Aortic valve is trileaflet. There is no aortic valvular stenosi s. No aortic regurgitation is present. Mitral Valve Mild mitral annular calcification. No evidence of mitral valve stenosis. Moderate mitral regurgitatio n. Tricuspid Valve The tricuspid valve is normal in structure. There is no tricuspid valve stenosis. Mild to moderate t ricuspid regurgitation. The RVSP is 32.4_ mmHg. Pulmonic Valve The pulmonary valve is normal in structure. There is no pulmonic valvular stenosis. Trace pulmonic re gurgitation. Great Vessels The aortic root is normal in size. The ascending aorta is normal Aortic arch is not well visualized. IVC is normal in size and collapses >50% with inspiration. Pericardium There is no pericardial effusion. 2D Dimensions IVSD d PLAX 0.80 cm F: 0.6-1.0 Ao Root d 3.10 cm F: 2.7 - 3.3 LVPW d PLAX 0.84 cm F: 0.6 - 1.0 Ao Asc Diam d 3.22 cm F: 2.3 - 3.1 LVID d PLAX 5.40 cm F: 3.8 - 5.2 LVDs 4.54 cm F: 2.2 - 3.5 LV EF Teichholz 33.1 % FS 15.87 % LV EDV (Teich) 141.1 mL LV ESV (Teich) 94.4 mL M-Mode TAPSE 1.29 cm (M/F) >1.7 Auto EF LV EDV A4C 111.6 mL LV EDV A2C 107.8 mL LV EDV BP 105.4 mL LV ESV A4C 71.2 mL LV ESV A2C 70.3 mL LV ESV BP 72.8 mL LVEF(%) A4C 36.2 % LVEF(%) A2C 34.8 % LVEF(%) BP 31.0 % LV SV A4C 40.4 ml LV SV A2C 37.5 ml LV SV BP 32.6 ml LV CO A4C 3.5 L/min LV CO A2C 3.7 L/min LV CO BP 3.6 L/min HR A4C 86.34 BPM HR A2C 98.64 BPM LV EDV Index (BP) LA Volume LA Length A4C 6.1 cm LA Length A2C 5.7 cm LA Area A4C s 23.26 cm2 LA Area A2C s 19.51 cm2 LA Vol A4C A-L 75.56 mL LA Vol A2C A-L 56.43 mL LA Vol Biplane A-L 67.3 mL LA Vol/BSA A4C A-L LA Vol/BSA A2C A-L LA Vol/BSA BP A-L 36.8 mL/m2 LA Vol A4C MOD 70.2 mL LA Vol A2C MOD 54.2 mL LA Vol BP MOD 63.4 mL RA Volume RA Area A4C 19.6 cm2 RA ESV A4C (A-L) 56.9mL RA Vol/BSA A4C A-L RA Length A4C 5.7 cm RA ESV A4C (MOD) 54.7mL LV Diastology MV E' medial 0.030 (>0.07 m/s) MV E Vmax 0.84 (0.4-1.3 m/s) MV E' lateral 0.091 (>0.1 m/s) Aortic Valve AoV Vmax 0.87 m/s LVOT Vmax 0.73 m/s AoV Peak Grad 3.1 mmHg LVOT Peak Grad 2.1 mmHg AoV Area (Vmax) 2.33 cm2 LVOT VTI 0.143 m AoV VTI 0.187 m LVOT Mean Grad 1.3 mmHg AoV Mean Fernando. 0.64 m/s LVOT SV 39.64 mL AoV Mean Grad 1.9 mmHg LVOT Diam s 1.85 cm AoV Area (VTI) 2.13 cm2 AV Regurg Peak Gr. 3.05 mmHg Velocity Ratio 0.84 Mitral Valve MV Vmax TIPS 0.78 m/s MV Mean Grad 1.0 (<2mmHg) MV Area PHT 4.85 cm2 MV VTI 0.193 m Pulmonary Valve PV Vmax 0.70 (0.5-1.5 m/s) RVOT Vmax 0.46 m/s PV Peak Grad 2.0 mmHg RVOT Peak Gr. 0.9 mmHg PV Mean Fernando 0.40 m/s RVOT VTI 0.098 m PV Mean Grad 0.8 mmHg RVOT Mean Gr. 0.5 mmHg Tricuspid Valve RA Pressure 3.00 mmHg TR Vmax 2.71 m/s TV S' 0.10 m/s TR Peak Grad 29.4 mmHg RVSP (TR) 32.4 mmHg
== END 2024-06-13 02:51 ==
LOC: DI 02:31
PROVIDERS: PCP Family Medicine; Visit Provider Internal Medicine Cardiovascular Disease
DX: I25.5 Ischemic cardiomyopathy (principal)
CPT/HCPCS: 93306

== ENCOUNTER → 2024-07-18 09:53 | Outpatient (BNVA) | payer MEDICARE, SELFPAY | PROVIDERS: PCP Family Medicine; Visit Provider Internal Medicine Cardiovascular Disease | DX: I48.19 Other persistent atrial fibrillation (principal); I25.5 Ischemic cardiomyopathy; I25.10 Atherosclerotic heart disease of native coronary artery without angina pectoris | CPT/HCPCS: 99214 ==

== ENCOUNTER → 2024-08-12 10:22 | Outpatient (BNVA) | payer MEDICARE, SELFPAY | PROVIDERS: PCP Family Medicine; Referring Provider Family Medicine; Visit Provider Podiatrist | DX: E11.42 Type 2 diabetes mellitus with diabetic polyneuropathy; L60.2 Onychogryphosis; I87.2 Venous insufficiency (chronic) (peripheral); R20.2 Paresthesia of skin; R60.0 Localized edema | CPT/HCPCS: 11719 ==

== ENCOUNTER → 2024-11-21 10:59 | Outpatient (BNVA) | payer MEDICARE, SELFPAY | PROVIDERS: PCP Family Medicine; Referring Provider Family Medicine; Visit Provider Internal Medicine Cardiovascular Disease | DX: I48.19 Other persistent atrial fibrillation (principal); I25.5 Ischemic cardiomyopathy; I25.10 Atherosclerotic heart disease of native coronary artery without angina pectoris; Z79.01 Long term (current) use of anticoagulants | CPT/HCPCS: 99214 ==

== ENCOUNTER 2025-04-14 07:37 | Outpatient (CLI) | payer MEDICARE, SELFPAY ==
--- NOTE | 2025-04-14 09:18 | DI.RAD_ITS ---
Exam(s) XR FINGER RT LITTLE EXAM: XR FINGER RT LITTLE CLINICAL HISTORY: RT 5TH FINGER PAIN,SWELLING,S/P FALL,TENDERNESS PIP JOINT,[id number]. TECHNIQUE: 2D digital imaging was performed. Three views. COMPARISON: No exams were available for comparison FINDINGS: BONES: There is a fracture at the base of the middle phalanx involving the articular surface. The posterior fragment is mildly displaced. There is a question of an additional fracture at the volar base of the distal phalanx. The bones appear osteoporotic. No bony destructive lesion is seen. JOINTS: No dislocation present. SOFT TISSUE: Normal. IMPRESSION: Intra-articular fracture at the base of the middle phalanx. Question of fracture at the volar base of the distal phalanx. DATA REPOSITORY: RADIATION DOSE DELIVERED:
== END 2025-04-14 07:57 ==
LOC: DI 07:37
PROVIDERS: PCP Family Medicine; Visit Provider Physician Assistant
DX: S62.620A Displaced fracture of middle phalanx of right index finger, initial encounter for closed fracture (principal); X58.XXXA Exposure to other specified factors, initial encounter
CPT/HCPCS: 73140

== ENCOUNTER → 2025-05-23 10:47 | Outpatient (BNVA) | payer MEDICARE, SELFPAY | PROVIDERS: PCP Family Medicine; Visit Provider Internal Medicine Cardiovascular Disease | DX: I48.19 Other persistent atrial fibrillation (principal); I25.5 Ischemic cardiomyopathy; I25.10 Atherosclerotic heart disease of native coronary artery without angina pectoris; Z79.01 Long term (current) use of anticoagulants; H54.7 Unspecified visual loss | CPT/HCPCS: 99214 ==